=== PATIENT | female | born 2000 | race Caucasian/White ===

== ENCOUNTER 2024-02-14 13:13 | Outpatient (RCR) | payer SELFPAY ==
[2024-02-14] MEDS: RHO(D) IMMUNE GLOBULIN 1,500 UNIT SYRINGE 1500 UNIT IM (13:45)
[2024-02-14 15:17] VITALS: BP 116/75; PULSE 116; TEMP 36.6; O2SAT 97
--- NOTE | 2024-02-14 15:19 | PC.NURSE ---
1325: Arrived in dept for injection. Pleasant and talkative. VS obtained; denies discomfort at this time. Questions answered regarding purpose of rhogam. Injection given; tolerated well. 1405: Discharged ambulatory to private vehicle with SO in attendance. Med information card given to pt.
== END 2024-02-22 23:59 | disposition home or self-care (01) ==
LOC: INF 13:13
PROVIDERS: Visit Provider Midwife
DX: O26.893 Other specified pregnancy related conditions, third trimester (principal); Z67.91 Unspecified blood type, Rh negative; Z3A.00 Weeks of gestation of pregnancy not specified
CPT/HCPCS: 96372; J2791

== ENCOUNTER 2024-03-17 18:45 | Inpatient (IN) | payer SELFPAY ==
[2024-03-17] VITALS (11 sets, daily range): BP systolic 122–137; BP diastolic 73–87; PULSE 85–102; TEMP 36.7–36.9
--- OUTSIDE RECORDS SUMMARY | 2024-03-17 18:54 | XMS_ITS | CCD ---
Author Organization [facility] Care Team Providers Care Air Bag Curer Name Role Phone Alesia Stover Unavailable Unavailable Madisyn Meier Unavailable Unavailable Neal Jerry Unavailable Unavailable Selena Henry Unavailable Unavailable Madisyn Meier Unavailable Unavailable No, Physician Unavailable Unavailable Alesia Stover Unavailable Unavailable No, Physician Primary Care Provider Unavailabl e NO, PHYSICIAN Primary Care Unavailable MADELEINE FREY Attending Unavailable NO, PHYSICIAN Primary Care Unavailable RENA RAYO Attending Yovanny connell NO, PHYSICIAN Primary Care Unavailable LUAN DILLON Attending Unavailable Kamila Nagel Primary Care Provider Unavailable Primary Care Provider Unavailabl e No Family, Physician Primary Care Unavailable Jolanta GRIFFITH, Tia Unavailable [phone] MANJINDERSOFIA DOWD S Consulting Unavailable TAL MAC Attending Unavailable TAL MAC Admitting Unavailable Shaylee Baez Primary Care Provider Provider, Conversion Unavailable [phone] Kamila Nagel CNP Primary Care Provider CAROL HINDS Attending Unavailable NO, PHYSICIAN Primary Care Unavailable OBI DEVINE Attending Unavailable OBI DEVINE Referring Unavailable OBI DEVINE Attending Unavailable OBI DEVINE Attending Unavailable OBI DEVINE Attending Unavailable OBI DEVINE Attending Unavailable Allergies Allergy Classification Reported Allergen(s) Allergy Type Date of Onset Reaction(s) Facility (3 sources) NO KNOWN DRUG ALLERGIES Allergy to substance (disorder) [facility] Work Phone: (19 sources) -No Environmental Allergies; Translations: [-No Environmental Allergies] Allergy to substance (disorder) [facility] Work Phone: (3 sources) -No Known Food Allergies Allergy to substance (disorder) [facility] Work Phone: Medications Current Medications Medication Drug Class(es) Dates Sig (Normalized) Sig (Original) ibuprofen 600 mg oral tablet (1 source) Nonsteroidal Anti-inflammatory Drug Start: 06-04-2018 take 1 tablet by mouth every eight hours as needed for pain ibuprofen (ADVIL;MOTRIN) 600 MG tablet Take 1 tablet by mouth every 8 hours as needed for Pain 30 tablet 0 06/04/2018 Active mupirocin 0.02 mg/mg topical ointment (20 sources) RNA Synthetase Inhibitor Antibacterial Start: 08-07-2019 End: 08-14-2019 mupirocin (BACTROBAN) 2 % ointment Apply topically 3 times daily. 15 g 0 08/07/2019 08/14/2019 Active Start: 06-08-2017 End: 05-23-2020 Mupirocin 2% EX OINT 017 - 05/23/2020 Provider: Start: 06-08-2017 End: 04-29-2018 mupirocin 2 % topical ointme nt 06/08/2017 04/29/2018 apply a small amount to right ear by topical route 3 times per day oseltamivir 75 mg oral capsule (2 sources) Neuraminidase Inhibitor Start: 09-05-2018 End: 09-05-2018 take 1 capsule by mouth twice daily oseltamivir (TAMIFLU) 75 MG capsule Take 1 (one) capsule (75 mg total) by mouth 2 (two) times a day . 10 capsule 0 09/05/2018 Active pantoprazole 20 mg delayed release oral tablet (1 source) Proton Pump Inhibitor Start: 03-22-2017 take 2 tablets by mouth once daily pantoprazole (PROTONIX) 20 MG tablet Take 2 tablets by mouth daily for 30 doses 30 tablet 0 03/22/2017 Active Completed/Discontinued Medications Medication Drug Class(es) Dates Sig (Normalized) Sig (Original) acetaminophen 325 mg oral tablet (1 source) Start: 09-05-2018 End: 09-05-2018 acetaminophen (TYLENOL) tablet 975 mg cetirizine (18 sources) Histamine-1 Receptor Antagonist Start: 04-29-2018 End: 05-23-2020 CETIRIZINE 10 MG MISC 04/29/2018 - 05/23/2020 Provider: Start: 04-29-2018 End: 04-29-2018 CETIRIZINE 10 MG MISC 2017 - 04/29/2018 Provider: Start: 04-29-2018 End: 04-29-2018 CETIRIZINE 10MG MIS 018 - 04/29/2018 Provider: Start: 04-29-2018 End: 05-13-2018 take 1 tablet by mouth once daily cetirizine 10 mg oral tablet 04/29/2018 05/13/2018 take 1 tablet (10 mg) by oral route once daily for 14 days cholecalciferol 2000 unt oral tablet (10 sources) Vitamin D Start: 06-12-2017 End: 04-29-2018 take 1 tablet by mouth once daily cholecalciferol (vitamin D3) 2,000 unit oral tablet 06/12/2017 04/29/2018 take 1 tablet by oral route daily Start: 06-12-2017 End: 06-12-2017 CHOLECALCIFEROL (VITAMIN D3) 2,000UNIT MISC 06/12/2017 - 06/12/2017 Provider: CHOLECALCIFEROL (VITAMIN D3) 2,000 UNIT MISC (8 sources) Start: 06-12-2017 End: 06-12-2017 CHOLECALCIFEROL (VITAMIN D3) 2,000 UNIT MISC 06/12/2017 - 06/12/2017 Provider: CHOLECALCIFEROL (VITAMIN D3) 2,000 UNIT MISC (1 source) Start: 06-12-2017 End: 05-23-2020 CHOLECALCIFEROL (VITAMIN D3) 2,000 UNIT MISC 06/12/2017 - 05/23/2020 Provider: clobetasol (20 sources) Corticosteroid Start: 07-12-2017 End: 05-23-2020 [facility] 0.[facility]% [facility] - 05/23/2020 Provider: Start: 07-12-2017 End: 07-12-2017 CLOBETASOL 0.05% [facility] [place] 2017 - 07/12/2017 Provider: Start: 07-12-2017 End: 08-23-2017 clobetasol 0.05 % topical oi ntment 07/12/2017 08/23/2017 apply a thin layer to the affected area(s) by topical route 2 times per day for 21 days as needed DEPO-PROVERA 150 MG/ML MISC (8 sources) Start: 05-03-2016 End: 05-03-2016 DEPO-PROVERA 150 MG/ML MISC 05/03/2016 - 05/03/2016 Provider: DEPO-PROVERA 150 MG/ML MISC (1 source) Start: 05-03-2016 End: 05-23-2020 DEPO-PROVERA 150 MG/ML MISC 05/03/2016 - 05/23/2020 Provider: dexamethasone phosphate 10 mg/ml injectable solution (1 source) Corticosteroid Start: 09-03-2018 End: 09-03-2018 dexamethasone (DECADRON) injection 10 mg {21 (ethinyl estradiol 0.035 MG / norgestimate 0.25 MG Oral Tablet) / 7 (inert ingredients 1 MG Oral Tablet) } Pack [Sprintec 28 Day] (12 sources) Progestin, Estrogen Start: 08-22-2018 End: 11-14-2018 Sprintec 28 0.25-35MG-MCG Oral Tablet 08/22/2018 - 11/14/2018 Provider: Alesia Stover CNP iopamidol (ISOVUE-370) 76 % injection 75 mL (1 source) Start: 09-03-2018 End: 09-03-2018 iopamidol (ISOVUE-370) 76 % injection 75 mL 1 ml ketorolac tromethamine 30 mg/ml injection (16 sources) Nonsteroidal Anti-inflammatory Drug, Cyclooxygenase Inhibitor Start: 09-05-2018 End: 09-05-2018 ketorolac (TORADOL) injection 30 mg Start: 09-03-2018 End: 09-03-2018 ketorolac (TORADOL) injectio n 30 mg Start: 07-30-2018 Ketorolac Trom ethamine 60 MG/2ML IM SOLN 07/30/2018 Alesia Stover CNP Comment on above: Patient tolerated th erapy well. No signs or symptoms of adverse reactions.Only gave 30MG/1ML medroxyPROGESTERone (10 sources) Progestin Start: 05-03-2016 End: 05-03-2016 DEPO-PROVERA 150MG/ML MISC 05/03/2016 - 05/03/2016 Provider: Start: 05-03-2016 End: 06-08-2017 take 1 mL by intramuscular injection every three months Depo-Provera 150 mg/mL intramuscular syringe 05/03/2016 06/08/2017 inject 1 milliliter (150 mg) by intramuscular route every 3 months. Given in office weight gain 2 ml ondansetron 2 mg/ml injection (1 source) Serotonin-3 Receptor Antagonist Start: 09-03-2018 End: 09-03-2018 ondansetron (ZOFRAN) injection 4 mg petrolatum (20 sources) Start: 07-12-2017 End: 09-10-2017 Aquaphor topical ointment 07/12/2017 09/10/2017 apply to affected area by external route 2 times a day for 30 days Start: 07-12-2017 End: 05-23-2020 [facility] [place] 07/12/2017 - 1 07/23/2019 Provider: Start: 07-12-2017 End: 07-12-2017 [facility] [place] 07/12/2017 - 0 07/12/2017 Provider: Start: 07-12-2017 End: 09-10-2017 Aquaphor topical ointment 09/10/2017 apply to affected area by external route 2 times a day for 30 days 2 ml prochlorperazine 5 mg/ml injection (1 source) Phenothiazine Start: 09-05-2018 End: 09-05-2018 prochlorperazine (COMPAZINE) injection 10 mg promethazine hydrochloride 25 mg oral tablet (20 sources) Phenothiazine Start: 08-20-2018 End: 09-19-2018 Promethazine HCl 25MG Oral Tablet 08/20/2018 - 09/19/2018 Provider: Alesia Stover CNP Start: 07-22-2018 End: 07-24-2018 take 1 tablet by mouth every twenty-four hours Promethazine HCl 25MG Oral Tablet 07/22/2018 - 07/24/2018 Provider: Alesia Stover CROSSING TENDER 1000 ml sodium chloride 9 mg /ml injection (3 sources) Start: 09-05-2018 End: 09-05-2018 sodium chloride 0.9% (NS) nii torin 1,000 mL Start: 09-03-2018 End: 09-03-2018 sodium chloride 0.9% (NS) nii torin 1,000 mL Start: 09-03-2018 End: 09-04-2018 sodium chloride (PF) (NS) fl ush 5 mL Sprintec (28) (4 sources) Start: 06-08-2017 End: 04-29-2018 take 1 tablet by mouth once daily Sprintec (28) 0.25-35 mg-mcg oral tablet 06/08/2017 04/29/2018 take 1 tablet by oral route once daily; start on Saturday Start: 06-08-2017 take 1 tablet by erika th once daily Sprintec (28) 0.25-35 mg-mcg oral tablet 06/08/2017 take 1 tablet by oral route once daily; start on Saturday SPRINTEC (28) 0.25-35 mg-mcg MISC (16 sources) Start: 06-08-2017 End: 06-08-2017 SPRINTEC (28) 0.25-35 mg-mcg MISC 06/08/2017 - 06/08/2017 Provider: SPRINTEC (28) 0.25-35 mg-mcg MISC (14 sources) Start: 06-08-2017 End: 05-23-2020 SPRINTEC (28) 0.25-35 mg-mcg MISC 06/08/2017 - 05/23/2020 Provider: Start: 06-08-2017 End: 06-08-2017 SPRINTEC (28) 0.25-35 mg-mcg MISC 06/08/2017 - 06/08/2017 Provider: terbinafine hydrochloride 10 mg/ml topical cream (19 sources) Allylamine Antifungal Start: 02-17-2018 End: 05-23-2020 Terbinafine HCl 1% EX CREA 02/17/2018 - 05/23/2020 Provider: Start: 02-17-2018 End: 03-17-2018 terbinafine HCl 1 % topical cream 02/17/2018 03/17/2018 apply to the affected and surrounding areas of skin by topical route 2 times per day for 14 days triamcinolone acetonide 1 mg/ml topical cream (19 sources) Corticosteroid Start: 06-08-2017 End: 05-23-2020 Triamcinolone Acetonide 0.1% EX CREA 06/08/2017 - 05/23/2020 Provider: Start: 06-08-2017 End: 04-29-2018 triamcinolone acetonide 0.1 % topical cream 06/08/2017 04/29/2018 apply to the rash on hands by topical route BID Problems Active Problems Problem Classification Problem Date Documented Da te Episodic/Chronic Adjustment disorders (20 sources) Adjustment disorder with depressed mood; Translations: [Adjustment disorder with depressed mood] Onset: 10-19-2016 Chronic Disorders of lipid metabolism (18 sources) Pure hyperglyceridemia; Translations: [Hypertriglyceridem ia] Onset: 06-12-2017 Chronic Headache; including migraine (7 sources) Migraine without aura; Translations: [Migraine without aura, without mention of intractable migraine without mention of status migrainosus] Onset: 07-30-2018 Chronic Immunizations and screening for infectious disease (20 sources) Need for prophylactic vaccination and inoculation against varicella; Translations: [Need for prophylactic vaccination and inoculation against influenza] Onset: 05-03-2016 Episodic Influenza (6 sources) Influenza; Translations: [Influenza due to Influenza A virus] Onset: 09-03-2018 Episodic Menstrual disorders (16 sources) Dysmenorrhea; Translations: [Menorrhagia] Onset: 08-22-2018 Chronic Miscellaneous mental health disorders (4 sources) Normal grief reaction; Translations: [Bereavement Without Complications] Onset: 08-21-2019 Episodic Nutritional deficiencies (18 sources) Vitamin D deficiency; Translations: [Unspecified vitamin D deficiency] Onset: 06-12-2017 Chronic Other lower respiratory disease (6 sources) Cough; Translations: [Assessment of Cough] Onset: 08-21-2019 Episodic Other nutritional; endocrine; and metabolic disorders (20 sources) Overweight; Translations: [Lipoprotein deficiencies] Onset: 06-12-2017 Chronic Other nutritional; endocrine; and metabolic disorders (18 sources) Obesity, unspecified; Translations: [Obesity, unspecified] Onset: 06-12-2017 Chronic Other nutritional; endocrine; and metabolic disorders (6 sources) Lipoprotein deficiencies Onset: 06-12-2017 Chronic Other nutritional; endocrine; and metabolic disorders (3 sources) Cholesterol level - finding; Translations: [Low HDL (under 40)] Onset: 06-12-2017 Chronic Other nutritional; endocrine; and metabolic disorders (3 sources) Obesity, unspecified; Translations: [Childhood obesity] Onset: 06-12-2017 Chronic Other nutritional; endocrine; and metabolic disorders (13 sources) Lipoprotein deficiency; Translations: [Lipoprotein deficiency] Onset: 06-12-2017 Chronic Other nutritional; endocrine; and metabolic disorders (9 sources) Body mass index (BMI) pediatric, 85th percentile to less than 95th percentile for age; Translations: [Assessment of Bmi Percentile = 85% To < 95% For Age Z68.53] Onset: 08-21-2019 Episodic Other skin disorders (1 source) Folliculitis Episodic Other upper respiratory infections (12 sources) Acute upper respiratory infections of unspecified site; Translations: [Acute pharyngitis] Onset: 04-29-2018 Episodic Past or Other Problems Problem Classification Problem Date Documented Date Episodic/Chronic Allergic reactions (18 sources) Hand eczema; Translations: [Contact dermatitis and other eczema, unspecified cause] Onset: 06-08-2017 Episodic Contraceptive and procreative management (20 sources) General counseling on prescription of oral contraceptives; Translations: [General counseling on initiation of other contraceptive measures] Onset: 05-03-2016 Episodic Disorders of teeth and jaw (4 sources) Accretions on teeth Onset: 05-07-2016 Episodic Medical examination/evaluatio n (7 sources) Dental examination; Translations: [Routine or child health check] Onset: 05-03-2016 Episodic Mycoses (4 sources) Dermatophytosis of the body Onset: 02-17-2018 Episodic Nausea and vomiting (8 sources) Persistent vomiting; Translations: [Persistent vomiting] Onset: 07-22-2018 Episodic Noninfectious gastroenteritis (6 sources) Gastroenteritis; Translations: [Other and unspecified noninfectious gastroenteritis and colitis] Onset: 08-20-2018 Episodic Other inflammatory condition of skin (4 sources) Unspecified pruritic disorder Onset: 07-16-2016 Episodic Other nutritional; endocrine; and metabolic disorders (3 sources) Body Mass Index, pediatric, greater than or equal to 95th percentile for age Onset: 06-08-2017 Episodic Other nutritional; endocrine; and metabolic disorders (3 sources) Body Mass Index 29.0-29.9, adult Onset: 06-08-2017 Episodic Other nutritional; endocrine; and metabolic disorders (3 sources) Body Mass Index, pediatric, 85th percentile to less than 95th percentile for age Onset: 10-19-2016 Episodic Other nutritional; endocrine; and metabolic disorders (7 sources) Finding of body mass index; Translations: [Body mass index (BMI) pediatric, 85th percentile to less than 95th percentile for age] Onset: 08-20-2018 Episodic Other skin disorders (5 sources) Dyshidrosis; Translations: [Unspecified hypertrophic and atrophic conditions of skin] Onset: 07-16-2016 Episodic Other skin disorders (3 sources) Unspecified hypertrophic and atrophic conditions of skin Onset: 07-16-2016 Episodic Skin and subcutaneous tissue infections (20 sources) Unspecified local infection of skin and subcutaneous tissue; Translations: [Pustule ] Onset: 06-08-2017 Episodic Sprains and strains (2 sources) Sprain of unspecified ligament of right ankle, initial encounter; Translations: [Sprain of unspecified ligament of right ankle, initial encounter] Onset: 06-02-2018 Episodic Superficial injury; contusion (3 sources) Contusion of nose; Translations: [Contusion of nose, initial encounter] Onset: 06-02-2018 Episodic Unclassified (4 sources) Screening for diabetes mellitus Onset: 06-08-2017 Episodic Unclassified (7 sources) Vaccination not carried out because of patient refusal; Translations: [Body Mass Index, pediatric, greater than or equal to 95th percentile for age] Onset: 10-19-2016 Episodic Unclassified (1 source) [id number] llness_name_1 Unclassified (1 source) [id number] llness_name_1 Unclassified (1 source) [id number] llness_name_1 Unclassified (1 source) Sprain of right ankle, unspecified ligament, initial encounter Unclassified (1 source) [id number] llness_name_1 Unclassified (20 sources) Questionnaires Phq-9 Total Score; Translations: [Questionnaires Phq-9 Total Score] Onset: 09-02-2018 Unclassified (20 sources) Raaps Score; Translations: [Raaps Score] Onset: 09-02-2018 Unclassified (14 sources) Adolescent care; Translations: [Routine History and Physical Adolescent (12 - 17 Yrs)] Onset: 09-02-2018 Unclassified (7 sources) Finding of body mass index; Translations: [Body Mass Index ___ Percentile] Onset: 08-20-2018 Results Test Name Value Interpretation Reference Range Facility US OB 14+ WEEKS ANATOMY SCAN on 01-28-2024 US OB 14+ WEEKS ANATOMY SCAN TITLE OF EXAM: US - US OB GREATER THAN 14 WEEKS REASON FOR EXAM: Anatomy scan TECHNIQUE: Grayscale, color, and M-mode Doppler sonographic evaluation of the fetus and maternal pelvis. COMPARISON: None. FINDINGS: LMP: 06/12/2023 Age by LMP: 32 weeks, 6 days Estimated date of delivery by LMP: 03/18/2024 Single live intrauterine gestation in cephalic position sonographically measuring 33 weeks, 1 day. Sonographically normal visualized structures including the lateral ventricles, orbits, heart, stomach, kidneys, urinary bladder, skeleton, and diaphragm. Movement was visualized during the survey. Three-vessel cord; the insertion was not definitively visualized. Heart rate: 151 bpm Biparietal diameter: 8.35 cm, 33 weeks, 4 days (66%) Abdominal circumference: 28.8 cm, 32 weeks, 6 days (49%) Head circumference: 29.7, 32 weeks, 6 days (14.5%) Femur length: 6.5, 33 weeks, 3 days (53%) weight: 2108 g (4 pounds, 10 ounces) (47%) Anteriorly positioned placenta without appreciable previa on the provided images. Placental grade 2. Approximate cervical length 4.5 cm. Amniotic fluid index 14.3 cm (50%). IMPRESSION: 1. Single live intrauterine gestation sonographically measuring 33 weeks, 1 day. 2. No appreciable anatomic abnormality of the or maternal structures. Findings as detailed. DICTATED ON: 01/28/2024 4:28 PM This report has been electronically signed and approved by the interpreting radiologist. Electronically Signed Diogenes Palma M.D. 2024-01-28 16:32:59 Normal Not Available COVID-19, MOLECULARon 2021 SARS-CoV-2 (COVID-19) RNA ELLIE+probe Ql (Unsp spec) Not detected Normal Not Detected [facility] Comment on above: Order Comment: This test was performed under the FDA's Emergency Use Authorization (EUA). Testing was performed using the Sel[facility] [employer] Manuel SARS-CoV-2 RT-PCR AND Influenza A/B Nucleic Acid Test on the [employer] System. This test has not been approved for use in asymptomatic patients and its performance in this patient population has not been evaluated. Negative results do not rule out the presence of SARS-CoV-2, influenza A, and/or influenza B. Fact sheets for the EUA can be found at the following links: For Healthcare Providers: https://www.fda.gov/media/810214/download For Patients: https://www.fda.gov/media/530836/download Performed By: #### L [id number] #### [facility] [address] [address] Melanie Cota M.D. [id number] TSH w/reflex to FT4on 2021 TSH Qn 1.61 m[IU]/L Normal 0.30-5.00 [facility] Comment on above: Performed By: #### T SHX #### [facility] [address] [facility] [place] [address] Motor Electrician: Nj Romero DO Acetaminophenon 07-12-2021 Acetaminophen [Mass/Vol] 6 ug/mL Low 10-30 [facility] Comment on above: Performed By: #### A CET, CDP, ALCB, CP, HCG, SALI #### [facility] [address] [facility] [place] [address] Motor Electrician: Nj Romero DO CBC with Diffon 07-12-2021 Abs. Basophil 0.00 k/uL Normal 0.0-0.2 [facility] Comment on above: Performed By: #### A CET, CDP, ALCB, CP, HCG, SALI #### [facility] [address] [facility] [place] [address] Motor Electrician: Nj Romero DO Abs.Neutrophil (Seg) 3.20 k/uL Normal 1.3-9.1 [facility] Comment on above: Performed By: #### A CET, CDP, ALCB, CP, HCG, SALI #### [facility] [address] [place] [address] Motor Electrician: Nj Romero DO Basophils/100 WBC (Bld) 1 % Normal 0-2 M [facility] Comment on above: Performed By: #### A CET, CDP, ALCB, CP, HCG, SALI #### [facility] [address] [place] [address] Motor Electrician: Nj Romero DO Eosinophils (Bld) [#/Vol] 0.00 10*3/uL Normal 0.0-0.4 [facility] Comment on above: Performed By: #### A CET, CDP, ALCB, CP, HCG, SALI #### [facility] [address] [place] [address] Motor Electrician: Nj Romero DO Eosinophils/100 WBC (Bld) 1 % Normal 0-4 [facility] Comment on above: Performed By: #### A CET, CDP, ALCB, CP, HCG, SALI #### [facility] [facility] [place] [address] Motor Electrician: Nj Romero DO Erythrocyte distribution width (RBC) [Ratio] 15.1 % High 11.5-14.9 [facility] Comment on above: Performed By: #### A CET, CDP, ALCB, CP, HCG, SALI #### [facility] [place] [address] Motor Electrician: Nj Romero DO Hematocrit (Bld) [Volume fraction] 42.4 % Normal 36-46 [facility] Comment on above: Performed By: #### A CET, CDP, ALCB, CP, HCG, SALI #### [facility] [address] [place] [address] Motor Electrician: Nj Romero DO Hemoglobin (Bld) [Mass/Vol] 13.8 g/dL Normal 12.0-16.0 [facility] Comment on above: Performed By: #### A CET, CDP, ALCB, CP, HCG, SALI #### [facility] [address] [place] [address] Motor Electrician: Nj Romero DO Lymphocytes (Bld) [#/Vol] 1.80 10*3/uL Normal 1.2-5.2 [facility] Comment on above: Performed By: #### A CET, CDP, ALCB, CP, HCG, SALI #### [facility] [address] [place] [address] Motor Electrician: Nj Romero DO Lymphocytes/100 WBC (Bld) 32 % Normal 25-45 [facility] Comment on above: Performed By: #### A CET, CDP, ALCB, CP, HCG, SALI #### [facility] [address] [place] [address] Motor Electrician: Nj Romero DO MCH (RBC) [Entitic mass] 27.9 pg Normal 26-34 [facility] Comment on above: Performed By: #### A CET, CDP, ALCB, CP, HCG, SALI #### [facility] [address] [place] [address] Motor Electrician: Nj Romero DO MCHC (RBC) [Mass/Vol] 32.5 g/dL Normal 31-37 [facility] Comment on above: Performed By: #### A CET, CDP, ALCB, CP, HCG, SALI #### [facility] [address] [place] [address] Motor Electrician: Nj Romero DO MCV (RBC) [Entitic vol] 85.8 fL Normal 80-100 M [facility] Comment on above: Performed By: #### A CET, CDP, ALCB, CP, HCG, SALI #### [facility] [address] [place] [address] Motor Electrician: Nj Romero DO Monocytes (Bld) [#/Vol] 0.60 10*3/uL Normal 0.1-1.3 [facility] Comment on above: Performed By: #### A CET, CDP, ALCB, CP, HCG, SALI #### [facility] [address] [place] [address] Motor Electrician: Nj Romero DO Monocytes/100 WBC (Bld) 10 % High 2-8 M [facility] Comment on above: Performed By: #### A CET, CDP, ALCB, CP, HCG, SALI #### [facility] [address] [place] [address] Motor Electrician: Nj Romero DO Neutrophil (Seg) 56 % Normal 34-64 [facility] Comment on above: Performed By: #### A CET, CDP, ALCB, CP, HCG, SALI #### [facility] [address] [place] [address] Motor Electrician: Nj Romero DO Platelet mean volume (Bld) [Entitic vol] 9.0 fL Normal 6.0-12.0 [facility] Comment on above: Performed By: #### A CET, CDP, ALCB, CP, HCG, SALI #### [facility] [address] [place] [address] Motor Electrician: Nj Romero DO Platelets (Bld) [#/Vol] 259 10*3/uL Normal 150-450 [facility] Comment on above: Performed By: #### A CET, CDP, ALCB, CP, HCG, SALI #### [facility] [address] [place] [address] Motor Electrician: Nj Romero DO RBC (Bld) [#/Vol] 4.94 10*6/uL Normal 4.0-5.2 [facility] Comment on above: Performed By: #### A CET, CDP, ALCB, CP, HCG, SALI #### [facility] [address] [place] [address] Motor Electrician: Nj Romero DO WBC (Bld) [#/Vol] 5.6 10*3/uL Normal 4.5-13.5 [facility] Comment on above: Performed By: #### A CET, CDP, ALCB, CP, HCG, SALI #### [facility] [place] [address] Motor Electrician: Nj Romero DO Abs.Imm.Granulocyte NOT REPORTED Normal 0.00-0.30 [facility] Comment on above: Performed By: #### A CET, CDP, ALCB, CP, HCG, SALI #### [facility] [place] [address] Motor Electrician: Nj Romero DO Auto Diff Performed NOT REPORTED Normal [facility] Comment on above: Performed By: #### A CET, CDP, ALCB, CP, HCG, SALI #### [facility] [place] [address] Motor Electrician: Nj Romero DO Immature Granulocyte NOT REPORTED Normal 0 [facility] Comment on above: Performed By: #### A CET, CDP, ALCB, CP, HCG, SALI #### [facility] [place] [address] Motor Electrician: Nj Romero DO NRBC Automated NOT REPORTED Normal [facility] Comment on above: Performed By: #### A CET, CDP, ALCB, CP, HCG, SALI #### [facility] [address] [facility] [place] [address] Motor Electrician: Nj Romero DO Platelet Comment NOT REPORTED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 volume (RBC) 82.8 fL Invalid Interpretation Code 80.-100. [facility] Monocytes/100 WBC Auto (Bld) 5.5 % Invalid Interpretation Code [facility] Neutrophils/100 WBC Auto (Bld) 51.0 % Invalid Interpretation Code [facility] Nucleated RBC/100 WBC Ratio (Bld) 0.4 10*3/uL Invalid Interpretation Code 0.1-0.4 [facility] Nucleated RBC/100 WBC Ratio (Bld) 3.3 10*3/uL Invalid Interpretation Code 0.8-5.2 [facility] Nucleated RBC/100 WBC Ratio (Bld) 0.5 10*3/uL Invalid Interpretation Code 0.1-0.9 [facility] Nucleated RBC/100 WBC Ratio (Bld) 4.4 10*3/uL Invalid Interpretation Code 1.3-9.1 [facility] RBC Auto #/vol (Bld) 5.230 10*6/uL Invalid Interpretation Code 4.00-5.50 [facility] Metabolic Panelon 06-10-2017 Albumin mass conc 4.40 g/dL Invalid Interpretation Code 3.2-5.3 [facility] ALP enzyme act/vol 131.0 U/L Invalid Interpretation Code 60-320 [facility] ALT enzyme act/vol 18.0 U/L Invalid Interpretation Code 5-59 [facility] Anion gap 3 molar conc 16 mmol/L Invalid Interpretation Code [facility] AST enzyme act/vol 21.0 U/L Invalid Interpretation Code 10-42 [facility] Calcium mass conc 9.70 mg/dL Invalid Interpretation Code 9.0-11.5 [facility] Chloride molar conc 103 mmol/L Invalid Interpretation Code 95-111 [facility] CO2 molar conc 28 mmol/L Invalid Interpretation Code 21-32 [facility] Creatinine mass conc 0.50 mg/dL Invalid Interpretation Code 0.5-1.3 [facility] Glucose mass conc 85 mg/dL Invalid Interpretation Code 70-100 [facility] Potassium molar conc 4.40 mmol/L Invalid Interpretation Code 3.5-5.4 [facility] Protein mass conc 6.7 g/dL Invalid Interpretation Code 6.2-8.8 [facility] Sodium molar conc 143 mmol/L Invalid Interpretation Code 134-147 [facility] Urea nitrogen mass conc 5.0 mg/dL Invalid Interpretation Code 10-20 [facility] Albumin mass conc 4.40 g/dL Invalid Interpretation Code 3.2-5.3 [facility] ALP enzyme act/vol 131.0 U/L Invalid Interpretation Code 60-320 [facility] ALT enzyme act/vol 18.0 U/L Invalid Interpretation Code 5-59 [facility] Anion gap 3 molar conc 16 mmol/L Invalid Interpretation Code [facility] AST enzyme act/vol 21.0 U/L Invalid Interpretation Code 10-42 [facility] Calcium mass conc 9.70 mg/dL Invalid Interpretation Code 9.0-11.5 [facility] Chloride molar conc 103 mmol/L Invalid Interpretation Code 95-111 [facility] CO2 molar conc 28 mmol/L Invalid Interpretation Code 21-32 [facility] Creatinine mass conc 0.50 mg/dL Invalid Interpretation Code 0.5-1.3 [facility] Glucose mass conc 85 mg/dL Invalid Interpretation Code 70-100 [facility] Potassium molar conc 4.40 mmol/L Invalid Interpretation Code 3.5-5.4 [facility] Protein mass conc 6.7 g/dL Invalid Interpretation Code 6.2-8.8 [facility] Sodium molar conc 143 mmol/L Invalid Interpretation Code 134-147 [facility] Urea nitrogen mass conc 5.0 mg/dL Invalid Interpretation Code 10-20 [facility] Otheron 06-10-2017 Bilirubin Ql (U) 0.2 Invalid Interpretation Code 0.2-1.3 [facility] Calcidiol mass conc 14.0 ng/mL Invalid Interpretation Code SEE BELOW [facility] Cholesterol crystals Infrared spectroscopy Ql (Stone) 203 mg/dL Invalid Interpretation Code <200 [facility] Cholesterol.total/Leatha sterol in HDL mass ratio 5.3 {ratio} Invalid Interpretation Code <5 [facility] Lipoprotein.beta/Lipopr otein.alpha mass ratio 2.6 Invalid Interpretation Code <3.5 [facility] Lipoprotein.pre-beta mass conc 66.0 mg/dL Invalid Interpretation Code <30 [facility] Lipoprotein.pre-beta mass conc 99.0 mg/dL Invalid Interpretation Code <110 [facility] WBC LM Ql (Sput) 8.6 Invalid Interpretation Code 3.7-10.8 [facility] 167 Invalid Interpretation Code >60 [facility] 202 Invalid Interpretation Code >60 [facility] 282 Invalid Interpretation Code 150.-450. [facility] Bilirubin Ql (U) 0.2 Invalid Interpretation Code 0.2-1.3 [facility] Calcidiol mass conc 14.0 ng/mL Invalid Interpretation Code SEE BELOW [facility] Cholesterol crystals Infrared spectroscopy Ql (Stone) 203 mg/dL Invalid Interpretation Code <200 [facility] Cholesterol.total/Leatha sterol in HDL mass ratio 5.3 {ratio} Invalid Interpretation Code <5 [facility] Lipoprotein.beta/Lipopr otein.alpha mass ratio 2.6 Invalid Interpretation Code <3.5 [facility] Lipoprotein.pre-beta mass conc 99.0 mg/dL Invalid Interpretation Code <110 [facility] Lipoprotein.pre-beta mass conc 66.0 mg/dL Invalid Interpretation Code <30 [facility] WBC LM Ql (Sput) 8.6 Invalid Interpretation Code 3.7-10.8 [facility] 202 Invalid Interpretation Code >60 [facility] 167 Invalid Interpretation Code >60 [facility] 282 Invalid Interpretation Code 150.-450. [facility] Thyroidon 06-10-2017 Thyrotropin Qn 2.580 uIU/mL Invalid Interpretation Code 0.36-5.80 [facility] Thyrotropin Qn 2.580 uIU/mL Invalid Interpretation Code 0.36-5.80 [facility] Metabolic Panelon 06-08-2017 Hemoglobin A1c/Hemoglobin.total mass fraction (Bld) 5.30 % Invalid Interpretation Code < 7 [facility] Hemoglobin A1c/Hemoglobin.total mass fraction (Bld) 5.30 % Invalid Interpretation Code < 7 [facility] Otheron 06-08-2017 2 Invalid Interpretation Code [facility] 2 Invalid Interpretation Code [facility] Urinalysison 06-08-2017 HCG.beta subunit ( test) Ql (U) Negative Invalid Interpretation Code [facility] HCG.beta subunit ( test) Ql (U) Negative Invalid Interpretation Code [facility] Otheron 10-19-2016 Negative Invalid Interpretation Code NEGATIVE [facility] URINE Invalid Interpretation Code [facility] Negative Invalid Interpretation Code NEGATIVE [facility] URINE Invalid Interpretation Code [facility] Urinalysis specialist review Interp Jose Rafael (Unsp spec) WNL Invalid Interpretation Code [facility] Negative Invalid Interpretation Code [facility] Urinalysis specialist review Interp Jose Rafael (Unsp spec) WNL Invalid Interpretation Code [facility] Negative Invalid Interpretation Code [facility] Urinalysison 10-19-2016 HCG.beta subunit ( test) Ql (U) Negative Invalid Interpretation Code [facility] HCG.beta subunit ( test) Ql (U) Negative Invalid Interpretation Code [facility] Otheron 07-16-2016 Urinalysis specialist review Interp Jose Rafael (Unsp spec) normal Invalid Interpretation Code [facility] Urinalysis specialist review Interp Jose Rafael (Unsp spec) normal Invalid Interpretation Code [facility] Urinalysison 07-16-2016 HCG.beta subunit ( test) Ql (U) Negative Invalid Interpretation Code [facility] HCG.beta subunit ( test) Ql (U) Negative Invalid Interpretation Code [facility] Otheron 05-03-2016 Never Invalid Interpretation Code [facility] mlm Invalid Interpretation Code [facility] Never Invalid Interpretation Code [facility] mlm Invalid Interpretation Code [facility] Vital Signs Date Time Vital Sign Value Performing Clinician Facility 08-25-2019 13:04-0500 BMI (Body Mass Index) 28.9 kg/m2 Kamila Nagel [facility] Work Phone: 08-25-2019 13:04-0500 Body mass index (BMI) [Percentile] 92 {percentile} Kamila Nagel [facility] Work Phone: 08-25-2019 13:04-0500 Body Temperature 98.3 [degF] Kamiladesiree Nagel [facility] Work Phone: 08-25-2019 13:04-0500 Body weight 72.13 kg [facility] Work Phone: 08-25-2019 13:04-0500 BP Diastolic 74 mm[Hg] [facility] Work Phone: 08-25-2019 13:04-0500 BP Systolic 124 mm[Hg] [facility] Work Phone: 08-25-2019 13:04-0500 BSA (Body Surface Area) 1.74 m2 [facility] Work Phone: 08-25-2019 13:04-0500 Flow Rate 0 L/min [facility] Work Phone: 08-25-2019 13:04-0500 Height 157.99 cm [facility] Work Phone: 08-25-2019 13:04-0500 Inhaled Oxygen Concentration 21 % [facility] Work Phone: 08-25-2019 13:04-0500 Pulse (Heart Rate) 86 /min [facility] Work Phone: 08-25-2019 13:04-0500 Pulse Oximetry 98 % [facility] Work Phone: 08-25-2019 13:04-0500 Respiratory Rate 20 /min [facility] Work Phone: 08-21-2019 10:26-0500 BMI (Body Mass Index) 27 kg/m2 [facility] Work Phone: 08-21-2019 10:26-0500 Body mass index (BMI) [Percentile] 89 {percentile} [facility] Work Phone: 08-21-2019 10:26-0500 Body Temperature 97.6 [degF] [facility] Work Phone: 08-21-2019 10:26-0500 Body weight 70.31 kg [facility] Work Phone: 08-21-2019 10:26-0500 BP Diastolic 75 mm[Hg] [facility] Work Phone: 08-21-2019 10:26-0500 BP Systolic 100 mm[Hg] [facility] Work Phone: 08-21-2019 10:26-0500 BSA (Body Surface Area) 1.75 m2 [facility] Work Phone: 08-21-2019 10:26-0500 Height 161.29 cm [facility] Work Phone: 08-21-2019 10:26-0500 Pulse (Heart Rate) 99 /min [facility] Work Phone: 08-21-2019 10:26-0500 Pulse Oximetry 99 % [facility] Work Phone: 08-21-2019 10:26-0500 Respiratory Rate 18 /min [facility] Work Phone: 08-07-2019 15:49-0500 Body Temperature 97.7 [degF] [facility] [employer] Work Phone: 08-07-2019 15:49-0500 Body weight 73.57 kg [facility] Work Phone: 08-07-2019 15:49-0500 BP Diastolic 57 mm[Hg] [facility] Work Phone: 08-07-2019 15:49-0500 BP Systolic 115 mm[Hg] [facility] Work Phone: 08-07-2019 15:49-0500 Pulse (Heart Rate) 87 /min [employer] Phone: 08-07-2019 15:49-0500 Pulse Oximetry 100 % [employer] Phone: 08-07-2019 15:49-0500 Respiratory Rate 16 /min [employer] Phone: 09-05-2018 15:15-0400 Body Temperature 97.5 [degF] [facility] 09-05-2018 15:15-0400 BP Diastolic 65 mm[Hg] [facility] 09-05-2018 15:15-0400 BP Systolic 94 mm[Hg] [facility] 09-05-2018 15:15-0400 Pulse (Heart Rate) 103 /min [facility] 09-05-2018 15:15-0400 Pulse Oximetry 95 % [facility] 09-05-2018 15:15-0400 Respiratory Rate 18 /min [facility] 09-05-2018 12:38-0400 BMI (Body Mass Index) 27.65 kg/m2 [facility] 09-05-2018 12:38-0400 Height 160 cm [facility] 09-05-2018 12:38-0400 Weight 70.8 kg [facility] 09-03-2018 22:51-0400 Body Temperature 98.6 [degF] [facility] 09-03-2018 22:51-0400 BP Diastolic 64 mm[Hg] [facility] 09-03-2018 22:51-0400 BP Systolic 121 mm[Hg] [facility] 09-03-2018 22:51-0400 Pulse (Heart Rate) 110 /min [facility] 09-03-2018 22:51-0400 Pulse Oximetry 98 % [facility] 09-03-2018 22:51-0400 Respiratory Rate 18 /min [facility] 09-03-2018 19:36-0400 BMI (Body Mass Index) 27.63 kg/m2 [facility] 09-03-2018 19:36-0400 Height 160 cm [facility] 09-03-2018 19:36-0400 Weight 70.[address] [facility] 09-02-2018 11:16-0400 Body height 161.29 cm Kamila Nagel CNP Work Phone: [facility] Work Phone: 09-02-2018 11:16-0400 Body mass index (BMI) [Percentile] 89 {percentile} Kamila Nagel [facility] Work Phone: 09-02-2018 11:16-0400 Body mass index (BMI) [Percentile] 89 % Kamila Whatleyy NACHO Work Phone: [facility] Work Phone: 09-02-2018 11:16-0400 Body mass index (BMI) [Ratio] 26.5 kg/m2 Kamila Whatleyy NACHO Work Phone: [facility] Work Phone: 09-02-2018 11:16-0400 Body surface area Derived from formula 1.73 m2 Kamila Whatleyy NACHO Work Phone: [facility] Work Phone: 09-02-2018 11:16-0400 Body temperature 97.4 [degF] Kamila Nagel CNP Work Phone: [facility] Work Phone: 09-02-2018 11:16-0400 Body weight 68.96 kg Kamila Whatleyy NACHO Work Phone: [facility] Work Phone: 09-02-2018 11:16-0400 Diastolic blood pressure 68 mm[Hg] Kamila Shona [employer] Work Phone: [facility] Work Phone: 09-02-2018 11:16-0400 Heart rate 88 /min Kamilawaldemar Whatleyy NACHO Work Phone: [facility] Work Phone: 09-02-2018 11:16-0400 Inhaled oxygen concentration 21 % Kamila Nagel CNP Work Phone: [facility] Work Phone: 09-02-2018 11:16-0400 Inhaled oxygen flow rate 0 L/min Kamila Nagel CNP Work Phone: [facility] Work Phone: 09-02-2018 11:16-0400 Pulse Oximetry 99 % Kamila Nagel [facility] Work Phone: 09-02-2018 11:16-0400 Respiratory rate 20 /min Kamila Nagel CNP Work Phone: [facility] Work Phone: 09-02-2018 11:16-0400 SaO2% (BldA) [Mass fraction] 99 % Kamila Nagel CNP Work Phone: [facility] Work Phone: 09-02-2018 11:16-0400 Systolic blood pressure 122 mm[Hg] Kamila Nagel CNP Work Phone: [facility] Work Phone: 08-22-2018 09:27-0500 Body height 155.45 cm Alesia Stover CNP Work Phone: [facility] Work Phone: 08-22-2018 09:27-0500 Body mass index (BMI) [Percentile] 93 {percentile} Kamila Nagel [facility] Work Phone: 08-22-2018 09:27-0500 Body mass index (BMI) [Percentile] 93 % Alesia Stover CNP Work Phone: [facility] Work Phone: 08-22-2018 09:27-0500 Body mass index (BMI) [Ratio] 28.4 kg/m2 Alesia Stover CNP Work Phone: [facility] Work Phone: 08-22-2018 09:27-0500 Body surface area Derived from formula 1.68 m2 Alesia Stover CNP Work Phone: [facility] Work Phone: 08-22-2018 09:27-0500 Body temperature 97.6 [degF] Alesia Stover CNP Work Phone: [facility] Work Phone: 08-22-2018 09:27-0500 Body weight 68.66 kg Alesia Stover CNP Work Phone: [facility] Work Phone: 08-22-2018 09:27-0500 Diastolic blood pressure 66 mm[Hg] Alesia Stover CNP Work Phone: [facility] Work Phone: 08-22-2018 09:27-0500 Heart rate 99 /min Alesia Stover CNP Work Phone: [facility] Work Phone: 08-22-2018 09:27-0500 Inhaled oxygen concentration 21 % Alesia Stover CNP Work Phone: [facility] Work Phone: 08-22-2018 09:27-0500 Inhaled oxygen flow rate 0 L/min Alesia Stover CNP Work Phone: [facility] Work Phone: 08-22-2018 09:27-0500 Pulse Oximetry 99 % Kamila Nagel [facility] Work Phone: 08-22-2018 09:27-0500 SaO2% (BldA) [Mass fraction] 99 % Alesia Stover CNP Work Phone: [facility] Work Phone: 08-22-2018 09:27-0500 Systolic blood pressure 102 mm[Hg] Alesia Stover CNP Work Phone: [facility] Work Phone: 08-20-2018 13:42-0500 Body height 158.5 cm Alesia Stover CNP Work Phone: [facility] Work Phone: 08-20-2018 13:42-0500 Body mass index (BMI) [Percentile] 91 {percentile} Kamila Nagel [facility] Work Phone: 08-20-2018 13:42-0500 Body mass index (BMI) [Percentile] 91 % Tia Jolanta GRIFFITH Work Phone: [facility] Work Phone: 08-20-2018 13:42-0500 Body mass index (BMI) [Ratio] 27.5 kg/m2 Alesia Stover CNP Work Phone: [facility] Work Phone: 08-20-2018 13:42-0500 Body surface area Derived from formula 1.71 m2 Alesia Stover CNP Work Phone: [facility] Work Phone: 08-20-2018 13:42-0500 Body temperature 97.3 [degF] Alesia Stover CNP Work Phone: [facility] Work Phone: 08-20-2018 13:42-0500 Body weight 69.06 kg Alesia Stover CNP Work Phone: [facility] Work Phone: 08-20-2018 13:42-0500 Diastolic blood pressure 72 mm[Hg] Alesia Stover CNP Work Phone: [facility] Work Phone: 08-20-2018 13:42-0500 Heart rate 89 /min Alesia Stover CNP Work Phone: [facility] Work Phone: 08-20-2018 13:42-0500 Inhaled oxygen concentration 21 % Alesia Stover CNP Work Phone: [facility] Work Phone: 08-20-2018 13:42-0500 Inhaled oxygen flow rate 0 L/min Alesia Stover CNP Work Phone: [facility] Work Phone: 08-20-2018 13:42-0500 Pulse Oximetry 100 % Kamila Nagel [facility] Work Phone: 08-20-2018 13:42-0500 SaO2% (BldA) [Mass fraction] 100 % Alesia Stover CNP Work Phone: [facility] Work Phone: 08-20-2018 13:42-0500 Systolic blood pressure 121 mm[Hg] Alesia Stover CNP Work Phone: [facility] Work Phone: 07-30-2018 14:53-0500 Body height 156.72 cm Conversion Provider Work Phone: [facility] Work Phone: 07-30-2018 14:53-0500 Body mass index (BMI) [Percentile] 93 {percentile} Kamila Nagel [facility] Work Phone: 07-30-2018 14:53-0500 Body mass index (BMI) [Percentile] 93 % Conversion Provider Work Phone: [facility] Work Phone: 07-30-2018 14:53-0500 Body mass index (BMI) [Ratio] 28.5 kg/m2 Conversion Provider Work Phone: [facility] Work Phone: 07-30-2018 14:53-0500 Body surface area Derived from formula 1.71 m2 Conversion Provider Work Phone: [facility] Work Phone: 07-30-2018 14:53-0500 Body temperature 98 [degF] Conversion Provider Work Phone: [facility] Work Phone: 07-30-2018 14:53-0500 Body weight 70.08 kg Conversion Provider Work Phone: [facility] Work Phone: 07-30-2018 14:53-0500 Diastolic blood pressure 65 mm[Hg] Conversion Provider Work Phone: [facility] Work Phone: 07-30-2018 14:53-0500 Heart rate 103 /min Conversion Provider Work Phone: [facility] Work Phone: 07-30-2018 14:53-0500 Inhaled oxygen concentration 21 % Conversion Provider Work Phone: [facility] Work Phone: 07-30-2018 14:53-0500 Inhaled oxygen flow rate 0 L/min Conversion Provider Work Phone: [facility] Work Phone: 07-30-2018 14:53-0500 Pulse Oximetry 98 % Kamila Nagel [facility] Work Phone: 07-30-2018 14:53-0500 SaO2% (BldA) [Mass fraction] 98 % Conversion Provider Work Phone: [facility] Work Phone: 07-30-2018 14:53-0500 Systolic blood pressure 120 mm[Hg] Conversion Provider Work Phone: [facility] Work Phone: 07-22-2018 14:36-0500 Body height 156.72 cm Conversion Provider Work Phone: [facility] Work Phone: 07-22-2018 14:36-0500 Body mass index (BMI) [Percentile] 93 {percentile} Kamiladesiree Nagel [facility] Work Phone: 07-22-2018 14:36-0500 Body mass index (BMI) [Percentile] 93 % Conversion Provider Work Phone: [facility] Work Phone: 07-22-2018 14:36-0500 Body mass index (BMI) [Ratio] 28.8 kg/m2 Conversion Provider Work Phone: [facility] Work Phone: 07-22-2018 14:36-0500 Body surface area Derived from formula 1.71 m2 Conversion Provider Work Phone: [facility] Work Phone: 07-22-2018 14:36-0500 Body temperature 97.2 [degF] Conversion Provider Work Phone: [facility] Work Phone: 07-22-2018 14:36-0500 Body weight 70.77 kg Conversion Provider Work Phone: [facility] Work Phone: 07-22-2018 14:36-0500 Diastolic blood pressure 70 mm[Hg] Conversion Provider Work Phone: [facility] Work Phone: 07-22-2018 14:36-0500 Heart rate 83 /min Conversion Provider Work Phone: [facility] Work Phone: 07-22-2018 14:36-0500 Inhaled oxygen concentration 21 % Conversion Provider Work Phone: [facility] Work Phone: 07-22-2018 14:36-0500 Inhaled oxygen flow rate 0 L/min Conversion Provider Work Phone: [facility] Work Phone: 07-22-2018 14:36-0500 Pulse Oximetry 100 % Kamila Nagel [facility] Work Phone: 07-22-2018 14:36-0500 SaO2% (BldA) [Mass fraction] 100 % Conversion Provider Work Phone: [facility] Work Phone: 07-22-2018 14:36-0500 Systolic blood pressure 112 mm[Hg] Conversion Provider Work Phone: [facility] Work Phone: 06-02-2018 17:49-0500 Body Temperature 97.59 [degF] Madeleine Frey [facility] 06-02-2018 17:49-0500 BP Diastolic 68 mm[Hg] Madeleine Frey [facility] 06-02-2018 17:49-0500 BP Systolic 120 mm[Hg] Madeleine Frey [facility] 06-02-2018 17:49-0500 Pulse (Heart Rate) 106 /min Madeleine Frey [facility] 06-02-2018 17:49-0500 Pulse Oximetry 99 % Madeleine Frey [facility] 06-02-2018 17:49-0500 Respiratory Rate 18 /min Madeleine Frey [facility] 06-02-2018 16:19-0500 BMI (Body Mass Index) 28.68 kg/m2 Madeleine [facility] 06-02-2018 16:19-0500 Height 157.[address] [facility] 06-02-2018 16:19-0500 Weight 71.[address] [facility] 04-29-2018 12:52-0500 BMI (Body Mass Index) 28.03 kg/m2 [facility] 04-29-2018 12:52-0500 Body Temperature 97.5 [degF] [facility] 04-29-2018 12:52-0500 BP Diastolic 71 mm[Hg] [facility] 04-29-2018 12:52-0500 BP Systolic 113 mm[Hg] [facility] 04-29-2018 12:52-0500 BSA (Body Surface Area) 1.74 m2 [facility] 04-29-2018 12:52-0500 Height 157.48 cm [facility] 04-29-2018 12:52-0500 Pulse (Heart Rate) 91 /min [facility] 04-29-2018 12:52-0500 Pulse Oximetry 100 % [facility] 04-29-2018 12:52-0500 Weight 69.51 kg [facility] 04-29-2018 10:52-0500 Body height 157.48 cm Conversion Provider Work Phone: [facility] Work Phone: 04-29-2018 10:52-0500 Body mass index (BMI) [Ratio] 28 kg/m2 Conversion Provider Work Phone: [facility] Work Phone: 04-29-2018 10:52-0500 Body surface area Derived from formula 1.71 m2 Conversion Provider Work Phone: [facility] Work Phone: 04-29-2018 10:52-0500 Body temperature 97.5 [degF] Conversion Provider Work Phone: [facility] Work Phone: 04-29-2018 10:52-0500 Body weight 69.4 kg Conversion Provider Work Phone: [facility] Work Phone: 04-29-2018 10:52-0500 Diastolic blood pressure 71 mm[Hg] Conversion Provider Work Phone: [facility] Work Phone: 04-29-2018 10:52-0500 Heart rate 91 /min Conversion Provider Work Phone: [facility] Work Phone: 04-29-2018 10:52-0500 Systolic blood pressure 113 mm[Hg] Conversion Provider Work Phone: [facility] Work Phone: 02-17-2018 12:32-0400 BMI (Body Mass Index) 27.15 kg/m2 Tia [facility] 02-17-2018 12:32-0400 Body Temperature 97.31 [degF] [facility] 02-17-2018 12:32-0400 BP Diastolic 59 mm[Hg] [facility] 02-17-2018 12:32-0400 BP Systolic 111 mm[Hg] [facility] 02-17-2018 12:32-0400 BSA (Body Surface Area) 1.76 m2 [facility] 02-17-2018 12:32-0400 Height 160.02 cm [facility] 02-17-2018 12:32-0400 Pulse (Heart Rate) 92 /min [facility] 02-17-2018 12:32-0400 Pulse Oximetry 98 % [facility] 02-17-2018 12:32-0400 Respiratory Rate 21 /min [facility] 02-17-2018 12:32-0400 Weight 69.51 kg [facility] 02-17-2018 11:32-0400 BMI (Body Mass Index) 27.15 kg/m2 [facility] 02-17-2018 11:32-0400 Body Temperature 97.31 [degF] [facility] 02-17-2018 11:32-0400 BP Diastolic 59 mm[Hg] [facility] 02-17-2018 11:32-0400 BP Systolic 111 mm[Hg] [facility] 02-17-2018 11:32-0400 BSA (Body Surface Area) 1.76 m2 [facility] 02-17-2018 11:32-0400 Height 160.02 cm [facility] 02-17-2018 11:32-0400 Pulse (Heart Rate) 92 /min Tia [facility] 02-17-2018 11:32-0400 Pulse Oximetry 98 % [facility] 02-17-2018 11:32-0400 Respiratory Rate 21 /min [facility] 02-17-2018 11:32-0400 Weight 69.51 kg [facility] 02-17-2018 09:32-0400 Body height 160.02 cm Conversion Provider Work Phone: [facility] Work Phone: 02-17-2018 09:32-0400 Body mass index (BMI) [Ratio] 27.1 kg/m2 Conversion Provider Work Phone: [facility] Work Phone: 02-17-2018 09:32-0400 Body surface area Derived from formula 1.73 m2 Conversion Provider Work Phone: [facility] Work Phone: 02-17-2018 09:32-0400 Body temperature 97.31 [degF] Conversion Provider Work Phone: [facility] Work Phone: 02-17-2018 09:32-0400 Body weight 69.4 kg Conversion Provider Work Phone: [facility] Work Phone: 02-17-2018 09:32-0400 Diastolic blood pressure 59 mm[Hg] Conversion Provider Work Phone: [facility] Work Phone: 02-17-2018 09:32-0400 Heart rate 92 /min Conversion Provider Work Phone: [facility] Work Phone: 02-17-2018 09:32-0400 Respiratory rate 21 /min Conversion Provider Work Phone: [facility] Work Phone: 02-17-2018 09:32-0400 Systolic blood pressure 111 mm[Hg] Conversion Provider Work Phone: [facility] Work Phone: 07-12-2017 11:26-0500 BMI (Body Mass Index) 30.34 kg/m2 [facility] 07-12-2017 11:26-0500 Body Temperature 99.2 [degF] [facility] 07-12-2017 11:26-0500 BP Diastolic 80 mm[Hg] [facility] 07-12-2017 11:26-0500 BP Systolic 124 mm[Hg] [facility] 07-12-2017 11:26-0500 BSA (Body Surface Area) 1.86 m2 [facility] 07-12-2017 11:26-0500 Height 160.02 cm [facility] 07-12-2017 11:26-0500 Pulse (Heart Rate) 109 /min [facility] 07-12-2017 11:26-0500 Pulse Oximetry 99 % [facility] 07-12-2017 11:26-0500 Respiratory Rate 22 /min [facility] 07-12-2017 11:26-0500 Weight 77.68 kg [facility] 07-12-2017 10:26-0500 BMI (Body Mass Index) 30.34 kg/m2 T[facility] 07-12-2017 10:26-0500 Body Temperature 99.2 [degF] [facility] 07-12-2017 10:26-0500 BP Diastolic 80 mm[Hg] [facility] 07-12-2017 10:26-0500 BP Systolic 124 mm[Hg] [facility] 07-12-2017 10:26-0500 BSA (Body Surface Area) 1.86 m2 [facility] 07-12-2017 10:26-0500 Height 160.02 cm [facility] 07-12-2017 10:26-0500 Pulse (Heart Rate) 109 /min [facility] 07-12-2017 10:26-0500 Pulse Oximetry 99 % [facility] 07-12-2017 10:26-0500 Respiratory Rate 22 /min [facility] 07-12-2017 10:26-0500 Weight 77.68 kg [facility] 06-08-2017 12:15-0500 BMI (Body Mass Index) 29.79 kg/m2 [facility] 06-08-2017 12:15-0500 Body Temperature 99.7 [degF] [facility] 06-08-2017 12:15-0500 BP Diastolic 71 mm[Hg] [facility] 06-08-2017 12:15-0500 BP Systolic 112 mm[Hg] [facility] 06-08-2017 12:15-0500 BSA (Body Surface Area) 1.84 m2 [facility] 06-08-2017 12:15-0500 Height 160.02 cm [facility] 06-08-2017 12:15-0500 Pulse (Heart Rate) 82 /min [facility] 06-08-2017 12:15-0500 Respiratory Rate 20 /min [facility] 06-08-2017 12:15-0500 Weight 76.29 kg [facility] 06-08-2017 11:15-0500 BMI (Body Mass Index) 29.79 kg/m2 [facility] 06-08-2017 11:15-0500 Body Temperature 99.7 [degF] [facility] 06-08-2017 11:15-0500 BP Diastolic 71 mm[Hg] [facility] 06-08-2017 11:15-0500 BP Systolic 112 mm[Hg] [facility] 06-08-2017 11:15-0500 BSA (Body Surface Area) 1.84 m2 [facility] 06-08-2017 11:15-0500 Height 160.02 cm [facility] 06-08-2017 11:15-0500 Pulse (Heart Rate) 82 /min [facility] 06-08-2017 11:15-0500 Respiratory Rate 20 /min [facility] 06-08-2017 11:15-0500 Weight 76.29 kg [facility] 10-19-2016 14:32-0400 BMI (Body Mass Index) 26.09 kg/m2 [facility] 10-19-2016 14:32-0400 Body Temperature 98.6 [degF] [facility] 10-19-2016 14:32-0400 BP Diastolic 81 mm[Hg] [facility] 10-19-2016 14:32-0400 BP Systolic 125 mm[Hg] [facility] 10-19-2016 14:32-0400 BSA (Body Surface Area) 1.76 m2 [facility] 10-19-2016 14:32-0400 Height 162.56 cm [facility] 10-19-2016 14:32-0400 Pulse (Heart Rate) 108 /min [facility] 10-19-2016 14:32-0400 Pulse Oximetry 97 % [facility] 10-19-2016 14:32-0400 Respiratory Rate 17 /min [facility] 10-19-2016 14:32-0400 Weight 68.95 kg [facility] 10-19-2016 13:32-0400 BMI (Body Mass Index) 26.09 kg/m2 [facility] 10-19-2016 13:32-0400 Body Temperature 98.6 [degF] [facility] 10-19-2016 13:32-0400 BP Diastolic 81 mm[Hg] [facility] 10-19-2016 13:32-0400 BP Systolic 125 mm[Hg] [facility] 10-19-2016 13:32-0400 BSA (Body Surface Area) 1.76 m2 [facility] 10-19-2016 13:32-0400 Height 162.56 cm [facility] 10-19-2016 13:32-0400 Pulse (Heart Rate) 108 /min [facility] 10-19-2016 13:32-0400 Pulse Oximetry 97 % [facility] 10-19-2016 13:32-0400 Respiratory Rate 17 /min [facility] 10-19-2016 13:32-0400 Weight 68.95 kg [facility] 07-16-2016 18:59-0500 BMI (Body Mass Index) 23.52 kg/m2 [facility] 07-16-2016 18:59-0500 Body Temperature 97.8 [degF] [facility] 07-16-2016 18:59-0500 BP Diastolic 78 mm[Hg] [facility] 07-16-2016 18:59-0500 BP Systolic 125 mm[Hg] [facility] 07-16-2016 18:59-0500 BSA (Body Surface Area) 1.68 m2 [facility] 07-16-2016 18:59-0500 Height 162.56 cm [facility] 07-16-2016 18:59-0500 Pulse (Heart Rate) 107 /min T[facility] 07-16-2016 18:59-0500 Pulse Oximetry 98 % [facility] 07-16-2016 18:59-0500 Respiratory Rate 17 /min [facility] 07-16-2016 18:59-0500 Weight 62.14 kg [facility] 07-16-2016 17:59-0500 BMI (Body Mass Index) 23.52 kg/m2 [facility] 07-16-2016 17:59-0500 Body Temperature 97.8 [degF] [facility] 07-16-2016 17:59-0500 BP Diastolic 78 mm[Hg] [facility] 07-16-2016 17:59-0500 BP Systolic 125 mm[Hg] [facility] 07-16-2016 17:59-0500 BSA (Body Surface Area) 1.68 m2 [facility] 07-16-2016 17:59-0500 Height 162.56 cm [facility] 07-16-2016 17:59-0500 Pulse (Heart Rate) 107 /min [facility] 07-16-2016 17:59-0500 Pulse Oximetry 98 % [facility] 07-16-2016 17:59-0500 Respiratory Rate 17 /min [facility] 07-16-2016 17:59-0500 Weight 62.14 kg [facility] 05-03-2016 11:25-0500 BMI (Body Mass Index) 22.76 kg/m2 [facility] 05-03-2016 11:25-0500 Body Temperature 98.4 [degF] [facility] 05-03-2016 11:25-0500 BP Diastolic 60 mm[Hg] [facility] 05-03-2016 11:25-0500 BP Systolic 110 mm[Hg] [facility] 05-03-2016 11:25-0500 BSA (Body Surface Area) 1.61 m2 [facility] 05-03-2016 11:25-0500 Height 160.02 cm [facility] 05-03-2016 11:25-0500 Pulse (Heart Rate) 95 /min [facility] 05-03-2016 11:25-0500 Pulse Oximetry 99 % [facility] 05-03-2016 11:25-0500 Respiratory Rate 17 /min [facility] 05-03-2016 11:25-0500 Weight 58.29 kg [facility] 05-03-2016 10:25-0500 BMI (Body Mass Index) 22.76 kg/m2 [facility] 05-03-2016 10:25-0500 Body Temperature 98.4 [degF] [facility] 05-03-2016 10:25-0500 BP Diastolic 60 mm[Hg] [facility] 05-03-2016 10:25-0500 BP Systolic 110 mm[Hg] [facility] 05-03-2016 10:25-0500 BSA (Body Surface Area) 1.61 m2 [facility] 05-03-2016 10:25-0500 Height 160.02 cm [facility] 05-03-2016 10:25-0500 Pulse (Heart Rate) 95 /min [facility] 05-03-2016 10:25-0500 Pulse Oximetry 99 % [facility] 05-03-2016 10:25-0500 Respiratory Rate 17 /min [facility] 05-03-2016 10:25-0500 Weight 58.29 kg [facility] Encounters Encounter Date Encounter Type Care Provider Facility Start: 03-13-2024 ambulatory OBI L FLORO Not Peg ilable Start: 02-25-2024 End: 02-25-2024 ambulatory OBI L FLORO Not Available Start: 02-11-2024 End: 02-11-2024 ambulatory OBI L FLORO Not Available Start: 02-03-2024 End: 02-03-2024 ambulatory OBI L FLORO Not Available Start: 01-28-2024 End: 01-28-2024 ambulatory OBI L FLORO Not Available Start: 10-15-2021 End: 10-16-2021 Emergency department patient visit CAROL R[facility] Start: 09-15-2021 End: 09-15-2021 ambulatory Shaylee Weaverbrook REFRIGERATION INSULATOR Work Phone: [facility] Work Phone: Start: 07-12-2021 End: 07-16-2021 Evaluation and management of inpatient SOFIA S [facility] Start: 08-25-2019 End: 08-25-2019 Established patient Tanya Comer Work Phone: [facility] Work Phone: Start: 08-21-2019 End: 08-21-2019 Established patient Tanya Comer Work Phone: [facility] Work Phone: Start: 08-21-2019 End: 08-21-2019 ambulatory Kamila Whatleyy Work Phone: [facility] Work Phone: Start: 08-21-2019 End: 08-21-2019 Patient encounter procedure Yaz Lyon [facility] Work Phone: Start: 08-07-2019 End: 08-07-2019 Emergency department patient visit Physician No [facility] Start: 08-07-2019 End: 08-07-2019 Emergency department patient visit [facility] EM[facility] Comment on above: Folliculitis (Primar y Dx) Start: 09-05-2018 End: 09-05-2018 Emergency department patient visit PHYSICIAN NO [facility] Start: 09-05-2018 End: 09-05-2018 Emergency department patient visit Luan Dillon Work Phone: [facility] Emergency Department Comment on above: Influenza A (Primary Dx) Start: 09-03-2018 End: 09-04-2018 Emergency department patient visit PHYSICIAN NO [facility] Start: 09-03-2018 End: 09-03-2018 Emergency department patient visit Rena Rayo Work Phone: [facility] Emergency Department Comment on above: Influenza (Primary D x) Start: 09-02-2018 End: 09-02-2018 Established patient Kati Porras Work Phone: [facility] Work Phone: Start: 09-02-2018 End: 09-02-2018 Adolescent care Kamila Nagel CNP Work Phone: [facility] Work Phone: Start: 09-02-2018 End: 09-02-2018 ambulatory Kamila Nagel Work Phone: [facility] Work Phone: Start: 09-02-2018 End: 09-02-2018 General Kamila Nagel CNP Work Phone: [facility] Work Phone: Start: 08-22-2018 End: 08-22-2018 Established patient Alesia Stover Work Phone: [facility] Work Phone (unformatted): [phone] Start: 08-20-2018 End: 08-20-2018 Established patient Alesia Stover Work Phone: [facility] Work Phone (unformatted): [phone] Start: 07-30-2018 End: 07-30-2018 Established patient Alesia Stover Work Phone: [facility] Work Phone (unformatted): [phone] Start: 07-22-2018 End: 07-22-2018 Established patient Alesia Stover Work Phone: [facility] Work Phone (unformatted): [phone] Start: 06-02-2018 End: 06-02-2018 Emergency department patient visit PHYSICIAN LAWSON [facility] Start: 06-02-2018 End: 06-02-2018 Emergency department patient visit Madeleine Claudia Tk Work Phone: [facility] Emergency Department Comment on above: Sprain of right ankl e, unspecified ligament, initial encounter (Primary Dx); Contusion of nose, initial encounter Start: 04-29-2018 End: 04-29-2018 Patient encounter procedure Conversion Provider Work Phone: [facility] Work Phone: Start: 04-29-2018 Office outpatient vi sit 25 minutes Tia Jolanta Other [facility] Start: 02-17-2018 End: 02-17-2018 Patient encounter procedure Conversion Provider Work Phone: [facility] Work Phone: Start: 02-17-2018 Office outpatient vi sit 15 minutes Tia Jolanta Other [facility] Start: 02-17-2018 Medical Tia Jolanta Other [facility] Start: 07-12-2017 End: 07-12-2017 Patient encounter procedure Conversion Provider Work Phone: [facility] Work Phone: Start: 07-12-2017 End: 07-12-2017 Office outpatient visit 15 minutes Tia Jolanta Other [facility] Start: 06-08-2017 End: 06-08-2017 Patient encounter procedure Conversion Provider Work Phone: [facility] Work Phone: Start: 06-08-2017 Comprehensive metabo lic panel [facility] Start: 06-08-2017 End: 06-08-2017 Office outpatient visit 15 minutes Danica Glover Other [employer] Start: 10-19-2016 End: 10-19-2016 Patient encounter procedure Conversion Provider Work Phone: [facility] Work Phone: Start: 10-19-2016 End: 10-19-2016 Behavioral Health Christiana Christy Other [employer] Start: 10-19-2016 Cul prsmptv pthgnc organism scrn w/[place] estimj [facility] Start: 10-19-2016 Iadna chlamydia trachomatis amplified probe tq [facility] Start: 10-19-2016 End: 10-19-2016 Office outpatient visit 15 minutes Madisyn Daviser Other [facility] Start: 07-16-2016 End: 07-16-2016 Office outpatient visit 15 minutes Madisyn Daviser Other José Chav[facility] [employer] Start: 07-16-2016 End: 07-16-2016 Patient encounter procedure Conversion Provider Work Phone: [facility] Work Phone: Start: 05-07-2016 [facility] Start: 05-07-2016 End: 05-07-2016 Dental Selena Zoranes Other [facility] [place] Start: 05-03-2016 End: 05-03-2016 Patient encounter procedure Conversion Provider Work Phone: [facility] Work Phone: Start: 05-03-2016 Routine infant or ch ild health check [facility] Start: 05-03-2016 End: 05-03-2016 Office outpatient new 20 minutes Madisyn Meier Other [employer] [employer] Procedures Date Procedure Procedure Detail Performing Clinician Start: 09-15-2021 Imm. administration COVID19 [employer] RE[employer]ERATION INSULATOR Work Phone: Start: 09-15-2021 SARS-CoV-2 vaccine, 0.5ml [employer] & Koudai REFRIGERATION INSULATOR Work Phone: Start: 08-25-2019 Psychotherapy w/enmanuel ent 30 minutes Tanya Comer Work Phone: Start: 08-21-2019 Caries risk assess low risk Yaz Lyon Start: 08-21-2019 General Periodic/Com p Exam*HPWO* Yaz Lyon Start: 08-21-2019 Iaadiadoo influenza Mague Nagel Work Phone: Start: 08-21-2019 Iaadiadoo streptococ cus group a Kamila Shona Work Phone: Start: 08-21-2019 Oral Health Integration Yza Lyon Start: 08-21-2019 Pain management Kamila Shona Start: 08-21-2019 past medical/surgica l history [use for free text] Kamila Shona Start: 08-21-2019 Psychotherapy w/enmanuel ent 30 minutes Tanya Souleymane Work Phone: Start: 08-21-2019 taking ldkx-skq-ypyi ter medications Kamila Nagel Start: 08-21-2019 Topical fluoride varnish Yaz Lyon Start: 07-26-2019 Throat culture Comment on above: Performed By: #### T HROAT #### [facility] CLIA:[id number] [address] [place] [address] Start: 09-05-2018 Complete blood count with white cell differential, automated Luan Dillon Work Phone: Start: 09-05-2018 Complete blood count with white cell differential, manual Luan Bonilla Dillon Work Phone: Start: 09-05-2018 Comprehensive metabo lic 2000 panel - Serum or Plasma Luan Bonilla Dillon Work Phone: Start: 09-05-2018 LIGHT BLUE TOP Luan Es tlow Dillon Work Phone: Start: 09-05-2018 LIGHT GREEN TOP Luan E stlow Dillon Work Phone: Start: 09-05-2018 RAINBOW DRAW Luan price Dillon Work Phone: Start: 09-04-2018 Radiologic exam ches t single view Rena Rayo Work Phone: Start: 09-04-2018 Ct abdomen & pelvis w/contrast material Rena Rayo Work Phone: Start: 09-04-2018 Choriogonadotropin ( test) [Presence] in Urine Rena Rayo Work Phone: Start: 09-04-2018 Urinalysis Rena Rayo Work Phone: Start: 09-04-2018 LIGHT BLUE TOP Rena Rayo Work Phone: Start: 09-04-2018 LIGHT GREEN TOP Rena Rayo Work Phone: Start: 09-04-2018 RAINBOW DRAW Rena Rayo Work Phone: Start: 09-04-2018 Basic metabolic 2000 panel - Serum or Plasma Rena Rayo Work Phone: Start: 09-04-2018 Complete blood count with white cell differential, automated Rena Rayo Work Phone: Start: 09-04-2018 Complete blood count with white cell differential, manual Rena Rayo Work Phone: Start: 09-04-2018 Hepatic function 200 0 panel - Serum or Plasma Rena Rayo Work Phone: Start: 09-04-2018 Lipase [Enzymatic activity/volume] in Serum or Plasma Rena Rayo Work Phone: Start: 09-04-2018 Troponin measurement Sa kwaku Rayo Work Phone: Start: 09-03-2018 Influenza virus A AN D B antigen assay Rena Rayo Work Phone: Start: 09-03-2018 Streptococcus pyogen es Ag [Presence] in Throat Rena Rayo Work Phone: Start: 09-02-2018 H/O: surgery Kamila rosales CNP Work Phone: Start: 09-02-2018 Psychotherapy w/enmanuel ent 30 minutes Kati Porras Work Phone: Start: 09-02-2018 taking medication Axel Nagel CROSSING TENDER Work Phone: Start: 09-02-2018 Urine test visual color cmprsn meths Kamila Nagel Work Phone: Start: 09-02-2018 Urnls dip stick/tabl et rgnt non-auto w/o micrscp Kamila Nagel Work Phone: Start: 08-20-2018 Urnls dip stick/tabl et rgnt non-auto w/o micrscp Tia [place] Work Phone: Start: 07-30-2018 Iaadiadoo streptococ cus group a Tia [place] Work Phone: Start: 07-30-2018 Ketorolac tromethamine inj Tia [place] Work Phone: Start: 07-30-2018 Therapeutic prophyla ctic/dx injection subq/im Tia [place] Work Phone: Start: 07-22-2018 Appendectomy Conversion Provider Work Phone: Start: 06-02-2018 End: 06-02-2018 X-ray of right ankle Madeleine Frey Work Phone: Start: 06-02-2018 End: 06-02-2018 Radex nasal bones complete minimum 3 views Madeleine Frey Work Phone: Start: 04-29-2018 PHQ9 Administered Tia R [facility] Start: 04-29-2018 RAAPS Tia Ruther ramachandran Start: 04-29-2018 Iaadiadoo streptococ cus group a Tia [place] Start: 06-12-2017 Dietitian Tia Ruther ramachandran Start: 06-08-2017 25 hydroxy includes fractions if performed Tia [place] Start: 06-08-2017 Assay of thyroid sti mulating hormone tsh Tia [place] Start: 06-08-2017 Blood count complete auto&auto difrntl wbc Tia [place] Start: 06-08-2017 End: 06-08-2017 Comprehensive metabolic panel Tia Jolanta Start: 06-08-2017 Lipid panel Tia Ruther ramachandran Start: 06-08-2017 Pt-focused hlth risk assmt score doc stnd instrm Tia [place] Start: 06-08-2017 End: 06-08-2017 Urine test visual color cmprsn meths Tia [place] Start: 06-08-2017 End: 06-08-2017 Hemoglobin glycosylated a1c Tia [facility] [address] Start: 10-19-2016 End: 10-19-2016 Cul prsmptv pthgnc organism scrn w/colony estimj [facility] Start: 10-19-2016 End: 10-19-2016 Iadna chlamydia trachomatis amplified probe tq [facility] Start: 10-19-2016 Iadna neisseria gono rrhoeae amplified probe tq [facility] Start: 10-19-2016 Medroxyprogesterone acetate [facility] Start: 10-19-2016 Medroxyprogesterone acetate Injection *CONTRACEPTION * GENERIC DEPO PROVERA* (150mg/ml dose) [facility] Start: 10-19-2016 Psychotherapy w/enmanuel ent 30 minutes [facility] Start: 10-19-2016 Therapeutic prophyla ctic/dx injection subq/im [facility] Start: 10-19-2016 End: 10-19-2016 HIV SCREENING *in-house* [facility] Start: 10-19-2016 End: 10-19-2016 Urine test visual color cmprsn meths [facility] Start: 10-19-2016 End: 10-19-2016 Urnls dip stick/tablet rgnt non-auto w/o micrscp [facility] Start: 07-16-2016 End: 07-16-2016 HIV Refused [facility] Start: 07-16-2016 End: 07-16-2016 Urine test visual color cmprsn meths [facility] Start: 07-16-2016 End: 07-16-2016 Urnls dip stick/tablet rgnt non-auto w/o micrscp [facility] Start: 07-16-2016 Medroxyprogesterone acetate Injection *CONTRACEPTION * GENERIC DEPO PROVERA* (150mg/ml dose) [facility] Start: 05-07-2016 HIV SCREENING REFUSE D* in house [facility] Start: 05-07-2016 NEW DENTAL PATIENT [facility] Start: 05-07-2016 ORAL HYGIENE INSTRUCTIONS [facility] Start: 05-03-2016 Medroxyprogesterone acetate Injection *CONTRACEPTION * GENERIC DEPO PROVERA* (150mg/ml dose) Alesia Stover Start: 05-03-2016 PHQ9 Administered Tia Tori estevez Start: 05-03-2016 RAAPS Tia Deandre ramachandran Start: 05-03-2016 End: 05-03-2016 Urine test visual color cmprsn meths Alesia Stover NEGATED: Highlighted row has not occurred!Start: 08-25-2019 previous hospitalizations Kamila Nagel NEGATED: Highlighted row has not occurred!Start: 07-30-2018 MIGRAINE HEADACHE Conversion Provider Work Phone: Plan of Treatment Date Care Activity Detail Author Start: 05-03-2026 Tetanus vaccination TETANUS EVERY [address] [facility] Start: 12-29-2019 Medical Established Patient [facility] Work Phone: Start: 10-05-2019 Dental Comp Exam [facility] Work Phone: Start: 08-25-2019 Medical Established Patient [facility] Work Phone: Start: 08-22-2019 Flu A & B Rapid, In House [facility] Work Phone: Start: 02-22-2019 Influenza vaccination Flu vaccine (#1) [facility] Work Phone: Start: 11-03-2018 [facility]QHC visit, estab pt Established Patient [facility] Work Phone (unformatted): [phone] Start: 10-02-2018 [facility] Work Phone: Start: 09-02-2018 End: 09-03-2018 Urine test visual color cmprsn meths Urine Test, In House [facility] Work Phone: Start: 09-02-2018 End: 09-03-2018 Urnls dip stick/tablet rgnt non-auto w/o micrscp Urinalysis Dipstick,In House [facility] Work Phone: Start: 09-02-2018 End: 10-02-2018 [facility] Work Phone: Start: 08-04-2018 [facility] visit, estab pt Established Patient [facility] Work Phone: Start: 02-22-2018 Influenza vaccination SEQUENTIAL INFLUENZA VACCINE (#1) [facility] Start: 02-22-2018 Influenza vaccination given SEQUENTIAL INFLUENZA VACCINE (#1) [facility] Start: 2017 Chlamydia screen Chlamydia screen [employer] Phone: Start: 2017 Meningococcal conjugate vaccination MENINGOCOCCAL VACCINE (1 - 2-dose series) [facility] Start: 2017 Meningococcus vaccination MENINGOCOCCAL VACCINE (1 of 1 - 2-dose series) [facility] Start: 2016 HIV screen HIV screen [employer] Phone: Start: 2016 Vaccination for human papillomavirus HPV VACCINES (1 - Female 3-dose series) [facility] Start: 05-31-2016 DTaP/Tdap/Td vaccine (2 - Td) DTaP/Tdap/Td vaccine (2 - Td) [employer] Phone: Start: 05-31-2016 Measles,Mumps,Rubella (MMR) vaccine (1 of 2 - Standard series) Measles,Mumps,Rubella (MMR) vaccine (1 of 2 - Standard series) [employer] Phone: Start: 05-31-2016 Varicella vaccine (2 of 2 - 13+ 2-dose series) Varicella vaccine (2 of 2 - 13+ 2-dose series) [employer] Phone: Start: 2014 Varicella vaccination VARICELLA VACCINES (1 of 2 - 2-dose adolescent series) [facility] Start: 2012 Vaccination for human papillomavirus HPV VACCINES (1 - Female 3-dose series) [facility] Start: 2008 Tetanus, diphtheria and acellular pertussis vaccination DTAP VACCINES (1 - Tdap) [facility] Start: 2008 Vaccination for diphtheria, pertussis, and tetanus DTAP VACCINES (1 - Tdap) [facility] Start: 2002 Hepatitis A immunization HEPATITIS A VACCINES (1 of 2 - 2-dose series) [facility] Start: 2002 Damioks-brcgn-darmvgb vaccination MMR VACCINES (1 of 2 - Standard series) [facility] Start: 2001 Inactivated poliovirus vaccine (product) [facility] Start: 2001 Polio vaccine (1 of 3 - 4-dose series) Polio vaccine (1 of 3 - 4-dose series) [employer] Phone: Start: 2001 Hepatitis B vaccination HEPATITIS B VACCINES (1 of 3 - 3-dose primary series) [facility] Start: 2001 Hepatitis B vaccine (1 of 3 - 3-dose primary series) Hepatitis B vaccine (1 of 3 - 3-dose primary series) [employer] Phone: Start: 2001 Tetanus vaccination TETANUS EVERY [address] [facility] End: 09-03-2018 Bacteria identified Aer cx Nom (Unsp spec) Urine Aerobic Culture Routine Once for 1 Occurrences starting 09/03/2018 until 09/03/2018 [facility] Comment on above: Once for 1 Occurrences starting 09/04/19 until 09/03/2018 Bacteria identified Aer cx Nom (Unsp spec) Urine Aerobic Culture Routine 09/03/2018 8:[address] [facility] End: 09-03-2018 S. pyogenes Org specific cx Ql (Throat) Strep A Culture, Throat EDWAR Once for 1 Occurrences starting 09/03/2018 until 09/03/2018, [address] [facility] Comment on above: Once for 1 Occurrences starting 09/04/19 until 09/03/2018, 1 completed S. pyogenes Org specific cx Ql (Throat) Strep A Culture, Throat Routine 09/03/2018 7:[address] [facility] Immunizations Immunization Date Immunization Notes Care Provider Elizabeth acevedo 09-15-2021 [employer] COVID 19 Vaccine Shaylee Gonzales REFRIGERATION INSULATOR Work Phone: [facility] Work Phone: Comment on above: Note: Patient tolera jimmy well. No signs or symptoms of adverse reactions. Patient waited a minimum of 15 minutes. 09-02-2018 meningococcal B vacc ine, recombinant, OMV, adjuvanted; Translations: [Meningococcal Recombinant Protein /Bexsero,VFC] Kamila Nagel CROSSING TENDER Work Phone: [facility] Work Phone: 09-02-2018 meningococcal polysaccharide (groups A, C, Y and W-135) diphtheria toxoid conjugate vaccine (MCV4P) Kamila Whatleyarik GRIFFITH Work Phone: [facility] Work Phone: 09-02-2018 Meningococcal, MCV4, unspecified conjugate formulation(groups A, C, Y and W-135) Kamila Whatleyarik GRIFFITH Work Phone: [facility] Work Phone: 09-02-2018 Ea.Addnl.Imm.Admin.T hrou gh 19 yrs Any Route Kamila Whatleyarik GRIFFITH Work Phone: [facility] Work Phone: 09-02-2018 Imm.Admin.Through 19 yrs Any Route FIRST Injection Kamila Whatleyarik GRIFFITH Work Phone: [facility] Work Phone: 06-08-2017 hepatitis A vaccine, pediatric/adolescent dosage, 2 dose schedule; Translations: [HEP A VACC PED/ADOL 2 DOSE] [facility] Comment on above: Note: HepA 06-08-2017 unknown vaccine or immune globulin; Translations: [IM ADMIN 1ST/ONLY COMPONENT] [facility] 06-08-2017 hepatitis A vaccine, unspecified formulation Conversion Provider Work Phone: [facility] Work Phone: Comment on above: Note: HepA 10-19-2016 human papilloma viru s vaccine, quadrivalent [facility] 10-19-2016 Human Papillomavirus 9-valent vaccine; Translations: [HPV VACCINE NON VALENT IM] [facility] 10-19-2016 HPV, unspecified formulation; Translations: [HPV] Conversion Provider Work Phone: [facility] Work Phone: Comment on above: Note: HPV 07-16-2016 human papilloma viru s vaccine, quadrivalent; Translations: [HPV VACCINE 4 VALENT IM] [facility] 07-16-2016 IM ADMIN EACH ADDL COMPONENT; Translations: [IM ADMIN EACH ADDL COMPONENT] [facility] 07-16-2016 HPV, unspecified formulation; Translations: [HPV] Conversion Provider Work Phone: [facility] Work Phone: Comment on above: Note: HPV 05-03-2016 hepatitis A vaccine, pediatric/adolescent dosage, 2 dose schedule; Translations: [HEP A VACC PED/ADOL 2 DOSE] [facility] Comment on above: Note: HepA 05-03-2016 human papilloma viru s vaccine, quadrivalent; Translations: [HPV VACCINE 4 VALENT IM] [facility] 05-03-2016 influenza, injectabl e, quadrivalent, preservative free; Translations: [FLU VAC NO PRSV 4 MICHEAL 3 YRS+] [facility] 05-03-2016 meningococcal polysaccharide (groups A, C, Y and W-135) diphtheria toxoid conjugate vaccine (MCV4P) [facility] 05-03-2016 Meningococcal, MCV4, unspecified conjugate formulation(groups A, C, Y and W-135); Translations: [MENINGOCOCCAL VACCINE IM] [facility] 05-03-2016 tetanus toxoid, redu maria elena diphtheria toxoid, and acellular pertussis vaccine, adsorbed; Translations: [TDAP VACCINE 7 YRS/> IM] [facility] Comment on above: Note: Tdap 05-03-2016 unknown vaccine or immune globulin; Translations: [IM ADMIN 1ST/ONLY COMPONENT] [facility] 05-03-2016 varicella virus vacc ine; Translations: [CHICKEN POX VACCINE SC] [facility] Comment on above: Note: Varicella 05-03-2016 IM ADMIN EACH ADDL COMPONENT; Translations: [IM ADMIN EACH ADDL COMPONENT] [facility] 05-03-2016 hepatitis A vaccine, unspecified formulation Conversion Provider Work Phone: [facility] Work Phone: Comment on above: Note: HepA 05-03-2016 influenza virus vacc ine, unspecified formulation Conversion Provider Work Phone: [facility] Work Phone: Comment on above: Note: Influenza 05-03-2016 influenza, high dose seasonal, preservative-free [facility] Work Phone: Comment on above: Note: Influenza 05-03-2016 MENINGOCOCCAL Conversion Pro vider Work Phone: [facility] Work Phone: Comment on above: Note: Meningococcal 05-03-2016 meningococcal ACWY vaccine, unspecified formulation [facility] Work Phone: Comment on above: Note: Meningococcal Payers Date Payer Category Payer Unknown [id number] 2017 Medicaid xxxxxxxxx [id number] 2016 Private Health Insurance [id number] 2016 Medicaid [id number]. [id number] 2013 Private Health Insurance [id number] 2001 Unknown [id number] 2001 Unknown [id number] [id number] 2001 Unknown [id number] [id number] 1981 Unknown [id number] [id number] 1981 Unknown [id number] 2.16.8 [id number] 1981 Unknown [id number] 2.16.8 [id number] 1981 Unknown [id number] 2.16.8 [id number] 1981 Unknown [id number] 2.16.8 [id number] 1981 Unknown [id number] [id number] Social History Date Type Detail Facility Start: [facility] Start: coffee/pop [facility] Start: 06-02-2018 End: 06-04-2018 Tobacco smoking status MAIS Never smoker [facility] Sex Assigned At Not on file [facility] Assertion Family problems (finding) [facility] Work Phone: Assertion Emotional stress (finding) [facility] Work Phone: Assertion [facility] Work Phone: Assertion Educational achievement (observable entity) [facility] Work Phone: Assertion Lives with paren ts (finding) [facility] Work Phone: Assertion Finding of educa tional achievement (finding) [facility] Work Phone: Assertion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
[2024-03-17 19:51] LABS: Hematocrit 36.9 % (36.0-48.0); Hemoglobin 11.4 g/dL (12.0-16.0); Mean Corpuscular HGB Conc 30.9 g/dL (29.9-35.2); Mean Corpuscular Hemoglobin 26.9 pg (26.7-34.0); Mean Platelet Volume 11.6 fL (9.5-13.5); Platelet Count 242 10^3/uL (150-450); Red Blood Count 4.24 10^6/uL (4.20-5.40); Red Cell Distribution Width 22.1 % (11.0-15.0); White Blood Count 10.6 10^3/uL (4.0-11.0)
[2024-03-17] MEDS: OXYTOCIN/0.9 % SODIUM CHLORIDE 10 UNITS/500 ML PLAST..BAG 6 UNIT IV (20:00)
[2024-03-17] MEDS: LACTATED RINGER'S SOLUTION 1,000 ML 125 ML IV (20:01)
[2024-03-17 20:02] LABS: Amphetamine Screen Urine NEGATIVE (NEGATIVE); Barbiturates Screen Urine NEGATIVE (NEGATIVE); Benzodiazepines Screen Urine NEGATIVE (NEGATIVE); Buprenorphine Screen Urine NEGATIVE (NEGATIVE); Cannabinoid Screen Urine NEGATIVE (NEGATIVE); Cocaine Screen Urine NEGATIVE (NEGATIVE); Methadone Screen Urine NEGATIVE (NEGATIVE); Methamphetamines Screen Urine NEGATIVE (NEGATIVE); Opiate Screen Urine NEGATIVE (NEGATIVE); Oxycodone Screen Urine NEGATIVE (NEGATIVE); Phencyclidine Screen Urine NEGATIVE (NEGATIVE); Tricyclic Antidepressant Urine NEGATIVE (NEGATIVE)
[2024-03-18] VITALS (84 sets, daily range): BP systolic 113–149; BP diastolic 58–101; PULSE 73–123; TEMP 36.3–37
[2024-03-18] MEDS: LACTATED RINGER'S SOLUTION 1,000 ML 125 ML IV ×3 (03:54→18:26)
--- NOTE | 2024-03-18 09:46 | P.OBHP_ITS ---
OB - H&P: HPI History of Present Illness Chief complaint: INDUCTION : 1 Para: 0 Gestational age based on last menstrual period: 40.0 Indications for induction: other (oligohydramnios) History of Present Dating criteria: based on 3rd trimester US only care: other (late care ) Ultrasounds: normal mid trimester US Abnormal ultrasound findings: SHANTI 2.0 cm 03/16/25 complications: other complications comment: care began at 31 weeks Medical complications OB: none Labs Blood type: 0 (-) negative Rubella: nonimmune RPR/VDLR: nonreactive GBS status: negative HBsAG: negative Review of Systems ROS Status of ROS: 10 or more systems reviewed and unremarkable except as noted in history and below Musculoskeletal: Reports: back pain Psychiatric: Reports: other (patient states she has a form of autism and some anxiety) [facility] Medical History (Updated 03/18/24 @ 09:56 by OBI DEVINE APRN, TRUPTI) Oligohydramnios in third trimester ?O41.03X0 - Oligohydramnios, third trimester, not applicable or unspecified (ICD-10) Autism ?F84.0 - Autistic disorder (ICD-10) Anxiety ?F41.9 - Anxiety disorder, unspecified (ICD-10) Anemia affecting ?O99.019 - Anemia complicating , unspecified trimester (ICD-10) Surgical History (Updated 03/17/24 @ 21:17 by Lorena Mahajan) History of appendectomy ?Z90.49 - Acquired absence of other specified parts of digestive tract (ICD- 10) Family History (Updated 03/17/24 @ 21:18 by Lorena Mahajan) Grandfather Family history of diabetes mellitus Social History (Updated 03/17/24 @ 21:30 by Lorena Mahajan) Within the past year, how often did you have a drink containing alcohol: never Score interpretation: A score less than 3 is consistent with normal alcohol consumption. Smoking status: Never smoker Non-prescribed substance use: former substance user Non-prescribed substance use details: Pt admits to using marijuana until she found out she was at 30 weeks Highest level of school completed/degree received: high school graduate Are you now , , , , never or living with a partner: never Meds Home Medications and Allergies Home Medications ?Medication ?Instructions ?Recorded ?Confirmed ?Type ferrous sulfate 325 mg (65 mg 325 mg PO BID 03/17/24 03/17/24 History iron) tablet (Feosol) Allergies Allergy/AdvReac Type Severity Reaction Status Date / Time Penicillins Allergy Unknown Hives Verified 03/17/24 19:07 Exam Constitutional Vital Signs, click to edit/add: Last Vital Signs Temp 97.6 F 03/18/24 08:19 Pulse 99 H 03/18/24 09:35 Resp 16 03/18/24 08:19 BP 149/101 H 03/18/24 09:35 O2 Del Method Room Air 03/18/24 03:03 Documenting provider has reviewed patient's vital signs: yes Common normals: no apparent distress, average body habitus, oriented x3, no limitations, healthy appearing, alert and well nourished General appearance: cooperative Orientation/consciousness: Yes awake, Yes oriented to person, Yes oriented to place and Yes oriented to time HENMT Common normals: normocephalic Eye Common normals: EOMs intact bilaterally General eye: normal appearance of both eyes Neck & C-Spine Common normals: full ROM Lymph Lymphatic: no lymphadenopathy noted Chest Common normals: inspection of chest normal Respiratory Common normals: normal respiratory effort, no retractions, no use of accessory muscles and clear to auscultation bilaterally Effort & inspection: able to speak in complete sentences Cardio Common normals: regular rate and regular rhythm Rate: regular rate Rhythm: regular rhythm GI Common normals: Normal to inspection, nondistended, normoactive bowel sounds present Auscultation: normoactive bowel sounds Palpation: soft Rectal Exam - Female: deferred Common normals: no CVA tenderness Back & Pelvis Common normals: no CVA tenderness Extremity Common normals: normal to inspection and full ROM Neuro Common normals: oriented x3 Sensorium/orientation: awake, alert, oriented to person, oriented to place and oriented to time Psych Common normals: mental status grossly normal, thought process normal, cooperative, affect normal, speech normal, activity/motor behavior normal, denies hallucinations, denies homicidal ideation and denies suicidal ideation Attitude: calm Speech: normal speech Thought process: normal thought process Thought content: normal thought content Results Labs Labs: Short CBC 03/17/24 Range/Units 19:38 WBC 10.6 (4.0-11.0) 10^3/uL Hgb 11.4 L (12.0-16.0) g/dL Hct 36.9 (36.0-48.0) % Plt Count 242 (150-450) 10^3/uL OB - A/P Assessment and Plan (1) Term : (2) Oligohydramnios: Qualifiers: Fetus number: single or unspecified fetus
--- NOTE | 2024-03-18 09:58 | PM.EN ---
Event Note Event Note: to unit to assess patient. SVE 2+/60/-1 unable to feel bag of fluid. patient is oligohydramnios of 2 cm. attempted to AROM with sterile amnihook, with a very small return of liquid, mucous and tinge of blood. No active bleeding noted/ heart tones are stable before, during and after ROM attempt. I am not confident she is ruptured. Will have nurse assess for a couple hours and I will return if needed.
[2024-03-18] MEDS: 0.9 % SODIUM CHLORIDE 1,000 ML 1000 ML IV (10:48)
[2024-03-18] MEDS: ROPIVACAINE HCL/PF 400 MG/200 ML PREMIX 10 MG EPIDURAL (11:06)
[2024-03-18] MEDS: ONDANSETRON PF 4 MG/2 ML VIAL IV (16:53)
--- NOTE | 2024-03-18 19:44 | W.PC.ACHO ---
Registration Status: ADM IN Primary Language: Venezuelan Preferred Language: Venezuelan Report given to Mena PAN at 1915. Care relinquished. Active Medications Generic Name Dose Route Start Last Admin Trade Name Rickie PRN Reason Stop Dose Admin Acetaminophen 1,000 mg 03/17/24 19:13 Acetaminophen 500 Mg Tablet PO Q6H PRN pain or fever 100.0 Calcium Carbonate 500 mg 03/17/24 19:13 Calcium Carbonate 500 Mg (200mg Elemental) Tab Chew PO TID PRN Heartburn Carboprost Tromethamine 250 mcg 03/17/24 19:07 Carboprost Tromethamine 250 Mcg/Ml 1 Ml Vial IM 03/19/24 19:07 Q15M PRN Bleeding Diphenhydramine HCl 25 mg 03/18/24 10:33 Diphenhydramine Hcl 50 Mg/Ml Vial IV 03/19/24 10:34 Q6H PRN Itching Ephedrine Sulfate 5 mg 03/18/24 10:33 Ephedrine Sulfate 50 Mg/Ml Vial IV 03/19/24 10:34 Q5M PRN Blood Pressure - Low Fentanyl Citrate 100 mcg 03/18/24 10:33 Fentanyl Citrate/Pf 100 Mcg/2 Ml Vial EPIDURAL ONCE PRN epidural Fentanyl Citrate 100 mcg 03/18/24 10:33 Fentanyl Citrate/Pf 100 Mcg/2 Ml Vial EPIDURAL ONCE PRN epidural Tranexamic Acid 1,000 mg/ 110 mls @ 440 mls/hr 03/17/24 19:07 Sodium Chloride IV 03/19/24 19:07 ONCE PRN Uterine Bleeding Oxytocin/Sodium Chloride 10 units in 500 mls @ 6 mls/hr 03/17/24 19:15 03/18/24 18:35 Pitocin 10 Unit/500 Ml-Ns IV 8 milliunit/min TITR ESTELLA 24 mls/hr Infusion Protocol 2 MILLIUNIT/MIN Oxytocin/Sodium Chloride 20 units in 1,000 mls @ 125 mls/hr 03/17/24 19:07 Pitocin 20 Unit/1,000 Ml-Ns IV Q8H PRN POST DELIVERY Lactated Ringer's 1,000 mls @ 125 mls/hr 03/17/24 19:30 03/18/24 18:26 Lactated Ringers IV 125 mls/hr .Q8H ESTELLA Administration Ropivacaine/Sodium Chloride 400 mg in 200 mls @ 6 mls/hr 03/18/24 10:45 03/18/24 11:06 Naropin 0.2% 400 Mg/200 Ml Bag EPIDURAL 10 mls/hr Q24H ESTELLA Administration Lidocaine 5 ml 03/17/24 19:07 Lidocaine Viscous 2% 15 Ml Solution TOPICAL 03/19/24 19:10 ONCE PRN Pain Lidocaine 1 ml 03/17/24 19:07 Lidocaine Hcl 1% 200 Mg/20 Ml Mdv INJ 03/19/24 19:10 ONCE PRN Pain Lidocaine 5 ml 03/18/24 10:33 Lidocaine Hcl 2% Pf 100 Mg/5 Ml Vial INJ 03/19/24 10:33 Q1H PRN Pain Methylergonovine Maleate 0.2 mg 03/17/24 19:07 Methylergonovine Maleate 0.2 Mg/Ml Ampule IM 03/19/24 19:07 ONCE PRN Uterine Contractility/Contract Methylergonovine Maleate 0.2 mg 03/17/24 19:07 Methylergonovine Maleate 0.2 Mg Tablet PO 03/19/24 19:07 Q4H PRN Uterine Contractility/Contract Misoprostol 600 mcg 03/17/24 19:07 Misoprostol 100 Mcg Tablet PO 03/19/24 19:07 ONCE PRN Uterine Bleeding Misoprostol 800 mcg 03/17/24 19:07 Misoprostol 100 Mcg Tablet SL 03/19/24 19:07 ONCE PRN Uterine Bleeding Misoprostol 1,000 mcg 03/17/24 19:07 Misoprostol 100 Mcg Tablet AL 03/19/24 19:07 ONCE PRN Uterine Bleeding Nalbuphine HCl 10 mg 03/17/24 19:07 Nalbuphine Hcl 10 Mg/Ml Ampule IV Q3H PRN Pain Naloxone HCl 0.4 mg 03/18/24 10:33 Naloxone Hcl 0.4 Mg/Ml Vial IV 03/19/24 10:34 ONCE PRN Respiratory Distress Ondansetron HCl 4 mg 03/17/24 19:07 03/18/24 16:53 Ondansetron Pf 4 Mg/2 Ml Vial IV 4 mg Q6H PRN Administration Nausea And Vomiting Ondansetron HCl 4 mg 03/17/24 19:07 Ondansetron 4 Mg Rapdis Tablet SL Q6H PRN Nausea And Vomiting Oxytocin 10 unit 03/17/24 19:07 Oxytocin 10 Unit/Ml Vial IM 03/19/24 19:07 ONCE PRN Bleeding Zolpidem Tartrate 5 mg 03/17/24 19:13 Zolpidem Tartrate 5 Mg Tablet PO HS PRN Sleep Diet Category Date Time Status Regular Consistency Diet Diet 03/17/24 19:08 Active IV Insertion/Site Date of IV Line Insertion [20g 03/17/24 right Forearm] IV Insertion Time [20g right 19:38 Forearm] Neurology Patient orientation (short person,place,time,situation list) Respiratory Oxygen Delivery Method Room Air Oxygen Delivery Method Room Air Oxygen Delivery Method Room Air Oxygen Delivery Method Room Air Oxygen Delivery Method Room Air Oxygen Delivery Method Room Air Oxygen Delivery Method Room Air
[2024-03-19] VITALS (38 sets, daily range): BP systolic 109–151; BP diastolic 56–92; PULSE 106–169; TEMP 36.4–37.3
[2024-03-19] MEDS: ACETAMINOPHEN 500 MG TABLET 1000 MG PO (01:41)
[2024-03-19] MEDS: OXYTOCIN/0.9 % SODIUM CHLORIDE 10 UNITS/500 ML PLAST..BAG 30 UNIT IV (01:47)
[2024-03-19] MEDS: LACTATED RINGER'S SOLUTION 1,000 ML 125 ML IV (01:50)
[2024-03-19] MEDS: CLINDAMYCIN PHOSPHATE/D5W 900 MG/50 ML PREMIX 100 MG IV (02:21)
[2024-03-19] MEDS: LIDOCAINE VISCOUS 2% 15 ML SOLUTION 5 ML TOPICAL (03:20)
[2024-03-19] MEDS: LIDOCAINE HCL 1% 200 MG/20 ML MDV INJ (03:32)
--- NOTE | 2024-03-19 04:39 | PM.OBPRCVD ---
Procedure Procedure: events: No Care (late care, care began at 30 weeks ) Intrapartal events: None Induction method: per pitocin protocol Delivery augmentation: rupture of membranes Delivery monitor: external FHT Route of delivery: Episiotomy Description: right mediolateral L&D Laceration Description: perineal - 2nd degree Delivery repair: Vicryl Estimated blood loss (mL): 150 Anesthesia type: Epidural Delivery date: 03/19/24 Gender: female presentation: vertex Placental delivery description: Spontaneous (greater than 30 mins and placenta did not come out. Dr Yu called to come for assistance. He was present and accomplished spontaneous delivery of the placenta. No manual removal needed at this time. ) cord description: 3 Vessels and Loose (CAN x1 loose reduced with delivery ) heart rate - 1 minute: Below 100 bpm respiratory effort - 1 minute: No Spontaneous Effort muscle tone - 1 minute: Limp reflex response - 1 minute: No Response color - 1 minute: Pallor or Cyanosis total score - 1 minute: 1 heart rate - 5 minute: 100 bpm or Greater respiratory effort - 5 minute: Spontaneous/Strong Cry muscle tone - 5 minute: Minimal Flexion/Extension reflex response - 5 minute: Minimal Response color - 5 minute: Bluish Hands or Feet total score - 5 minute: 7
[2024-03-19] MEDS: OXYTOCIN/0.9 % SODIUM CHLORIDE 20 UNITS/1,000 ML PLAST..BAG 125 UNIT IV (04:51)
[2024-03-19] MEDS: METHYLERGONOVINE MALEATE 0.2 MG/ML AMPULE IM (04:53)
[2024-03-19] MEDS: BENZOCAINE/MENTHOL 85 GRAM SPRAY BOTTLE 1 APPLIC TOPICAL (05:59)
[2024-03-19] MEDS: IBUPROFEN 400 MG TABLET 800 MG PO ×3 (06:00→22:30)
[2024-03-19] MEDS: ONDANSETRON PF 4 MG/2 ML VIAL IV (06:00)
[2024-03-19] MEDS: GLYCERIN/WITCH HAZEL PADS 1 PAD TOPICAL (06:00)
[2024-03-19 10:21] LABS: Hematocrit 30.1 % (36.0-48.0); Hemoglobin 9.7 g/dL (12.0-16.0); Mean Corpuscular HGB Conc 32.2 g/dL (29.9-35.2); Mean Corpuscular Hemoglobin 27.6 pg (26.7-34.0); Mean Corpuscular Volume 85.5 fL (81.0-99.0); Platelet Count 211 10^3/uL (150-450); Red Blood Count 3.52 10^6/uL (4.20-5.40); Red Cell Distribution Width 22.7 % (11.0-15.0); White Blood Count 25.8 10^3/uL (4.0-11.0)
[2024-03-19 11:10] LABS: Anisocytosis 2+; Band Neutrophils Absolute 0.5 10^3/uL (0.0-0.3); Monocytes Absolute Manual 0.25 10^3/uL (0.30-0.80); Segmented Neut Absolute Manual 23.22 10^3/uL (1.4-6.5)
--- NOTE | 2024-03-19 13:10 | SWNOTE1 ---
IGANCARLO spoke to pt about being a self pay patient. Pt stated she applied for Medicaid a few months ago, but had been told she was denied due to having another insurance? SW asked pt if she had another insurance and she stated no. SW asked what she had in the past for insurance and she stated she thinks [facility]. SW did ask if it was her moms and she stated yes. SW is not sure why she would be denied Medicaid. At this time SW encouraged her to re-apply for Medicaid. Pt in agreement, pt's significant other in room as well. GIANCARLO provided pt with a Medicaid application and let her know to fill it out and SW will check back later today or tomorrow. GIANCARLO advised if any questions to let SW know. GIANCARLO also sent an email to [facility].
--- NOTE | 2024-03-19 13:20 | SWNOTE1 ---
Pt also has been in contact with [facility] and will schedule appointment once they are home.
[2024-03-19] MEDS: FERROUS SULFATE 325 MG TABLET PO (21:20)
[2024-03-20] VITALS: BP 115/68; PULSE 111; TEMP 36.7
--- NOTE | 2024-03-20 07:11 | W.PC.ACHO ---
Registration Status: ADM IN Primary Language: Samoan Preferred Language: Samoan Report given to Debbie PAN. Active Medications Generic Name Dose Route Start Last Admin Trade Name Faustinoq PRN Reason Stop Dose Admin Acetaminophen 1,000 mg 03/17/24 19:13 03/19/24 01:41 Acetaminophen 500 Mg Tablet PO 1,000 mg Q6H PRN Administration pain or fever 100.0 Acetaminophen 650 mg 03/19/24 05:29 Acetaminophen 325 Mg Tablet PO Q6H PRN Mild Pain Al Hydroxide/Mg Hydroxide 2,400 mg 03/19/24 05:29 Magnesium Hydroxide 2,400 Mg/10 Ml Oral.Susp PO Q6H PRN Dyspepsia Benzocaine/Menthol 1 applic 03/19/24 05:29 03/19/24 05:59 Benzocaine/Menthol 85 Gram [place] Bottle TOPICAL 1 applic Q2H PRN Administration Pain Calcium Carbonate 500 mg 03/17/24 19:13 Calcium Carbonate 500 Mg (200mg Elemental) Tab Chew PO TID PRN Heartburn Diphtheria/Pertussis/Tetanus Vacc 0.5 ml 03/21/24 09:00 Adacel Diph,Pertuss(Acell),Tet Vac/Pf 0.5 Ml Adult Syringe IM 03/21/24 09:01 .ONCE ONE Docusate Sodium 100 mg 03/20/24 09:00 Docusate Sodium 100 Mg Capsule PO BID ESTELLA Fentanyl Citrate 100 mcg 03/18/24 10:33 Fentanyl Citrate/Pf 100 Mcg/2 Ml Vial EPIDURAL ONCE PRN epidural Fentanyl Citrate 100 mcg 03/18/24 10:33 Fentanyl Citrate/Pf 100 Mcg/2 Ml Vial EPIDURAL ONCE PRN epidural Ferrous Sulfate 325 mg 03/19/24 09:00 03/19/24 21:20 Ferrous Sulfate 325 Mg Tablet PO 325 mg BID ESTELLA Administration Oxytocin/Sodium Chloride 10 units in 500 mls @ 6 mls/hr 03/17/24 19:15 03/19/24 01:47 Pitocin 10 Unit/500 Ml-Ns IV 10 milliunit/min TITR ESTELLA 30 mls/hr Administration Protocol 2 MILLIUNIT/MIN Lactated Ringer's 1,000 mls @ 125 mls/hr 03/17/24 19:30 03/19/24 01:50 Lactated Ringers IV 125 mls/hr .Q8H ESTELLA Administration Ropivacaine/Sodium Chloride 400 mg in 200 mls @ 6 mls/hr 03/18/24 10:45 03/19/24 04:30 Naropin 0.2% 400 Mg/200 Ml Bag EPIDURAL Infused Q24H ESTELLA Infusion Ibuprofen 800 mg 03/19/24 05:30 03/19/24 22:30 Ibuprofen 400 Mg Tablet PO 800 mg Q8H ESTELLA Administration Measles/Mumps/Rubella Vaccine Live 0.5 ml 03/21/24 09:00 Measles,Mumps,Rubella Vacc/Pf 0.5 Ml Vial SQ 03/21/24 09:01 .ONCE ONE Nalbuphine HCl 10 mg 03/17/24 19:07 Nalbuphine Hcl 10 Mg/Ml Ampule IV Q3H PRN Pain Ondansetron HCl 4 mg 03/17/24 19:07 03/19/24 06:00 Ondansetron Pf 4 Mg/2 Ml Vial IV 4 mg Q6H PRN Administration Nausea And Vomiting Ondansetron HCl 4 mg 03/17/24 19:07 Ondansetron 4 Mg Rapdis Tablet SL Q6H PRN Nausea And Vomiting Senna 17.2 mg 03/19/24 20:00 Sennosides 8.6 Mg Tablet PO QHS PRN Constipation Simethicone 80 mg 03/19/24 05:29 Simethicone 80 Mg Tab.Chew PO QID PRN Abdominal Distention Temazepam 15 mg 03/19/24 05:29 Temazepam 15 Mg Capsule PO QHS PRN Sleep Witch Kiley/Glycerin 1 pad 03/19/24 05:29 03/19/24 06:00 Glycerin/Witch Kiley Pads TOPICAL 1 pad Q2H PRN Administration Pain Zolpidem Tartrate 5 mg 03/17/24 19:13 Zolpidem Tartrate 5 Mg Tablet PO HS PRN Sleep Respiratory Oxygen Delivery Method Room Air Oxygen Delivery Method Room Air Oxygen Delivery Method Room Air Renal Bladder Pattern Continent Bladder Pattern Continent
[2024-03-20 08:05] VITALS: BP 120/69; PULSE 96; TEMP 36.8
[2024-03-20 08:08] VITALS: BP 120/69; PULSE 96
[2024-03-20] MEDS: IBUPROFEN 400 MG TABLET 800 MG PO ×2 (08:11→16:23)
[2024-03-20] MEDS: DOCUSATE SODIUM 100 MG CAPSULE PO ×2 (08:11→21:33)
[2024-03-20] MEDS: FERROUS SULFATE 325 MG TABLET PO (08:11)
--- NOTE | 2024-03-20 08:41 | PM.OBPN ---
OB - PN: Subj Subjective Patient comments: no complaints and pain well controlled [place] status: doing well Exam Constitutional Vital Signs, click to edit/add: Last Vital Signs Temp 98.2 F 03/20/24 08:05 Pulse 96 H 03/20/24 08:08 Resp 16 03/20/24 08:05 BP 120/69 03/20/24 08:08 O2 Del Method Room Air 03/20/24 00:00 Documenting provider has reviewed patient's vital signs: yes Common normals: no apparent distress Respiratory Common normals: normal respiratory effort and clear to auscultation bilaterally Cardio Common normals: regular rate and regular rhythm GI Common normals: Normal to inspection, nondistended, normoactive bowel sounds present Extremity Common normals: no calf tenderness Results Labs Labs: Short CBC 03/19/24 Range/Units 10:03 WBC 25.8 H (4.0-11.0) 10^3/uL Hgb 9.7 L (12.0-16.0) g/dL Hct 30.1 L (36.0-48.0) % Plt Count 211 (150-450) 10^3/uL OB - PN: A/P Assessment and Plan (1) Term : (2) Oligohydramnios: Qualifiers: Fetus number: single or unspecified fetus Plan - Vaginal Delivery day: 1 Plan: routine care Time Spent with Patient Time: Total time spent is greater than 50% in coordination of care (as documented) at patient's floor/unit and/or counseling patient: Total time spent with greater than 50% in coordination of care (as documented) at patient's floor/unit and/or counseling patient: less than 15 minutes
[2024-03-20 10:35] VITALS: BP 123/60; PULSE 102
[2024-03-20 16:15] VITALS: BP 106/65; PULSE 102; TEMP 37.7
[2024-03-20 16:16] VITALS: BP 106/65; PULSE 102
--- NOTE | 2024-03-20 19:32 | W.PC.ACHO ---
Registration Status: ADM IN Primary Language: Moldovan Preferred Language: Moldovan Report given on discharge teaching, meds & delivery history. Active Medications Generic Name Dose Route Start Last Admin Trade Name Rickie PRN Reason Stop Dose Admin Acetaminophen 1,000 mg 03/17/24 19:13 03/19/24 01:41 Acetaminophen 500 Mg Tablet PO 1,000 mg Q6H PRN Administration pain or fever 100.0 Acetaminophen 650 mg 03/19/24 05:29 Acetaminophen 325 Mg Tablet PO Q6H PRN Mild Pain Al Hydroxide/Mg Hydroxide 2,400 mg 03/19/24 05:29 Magnesium Hydroxide 2,400 Mg/10 Ml Oral.Susp PO Q6H PRN Dyspepsia Benzocaine/Menthol 1 applic 03/19/24 05:29 03/19/24 05:59 Benzocaine/Menthol 85 Gram [place] Bottle TOPICAL 1 applic Q2H PRN Administration Pain Calcium Carbonate 500 mg 03/17/24 19:13 Calcium Carbonate 500 Mg (200mg Elemental) Tab Chew PO TID PRN Heartburn Diphtheria/Pertussis/Tetanus Vacc 0.5 ml 03/21/24 09:00 Adacel Diph,Pertuss(Acell),Tet Vac/Pf 0.5 Ml Adult Syringe IM 03/21/24 09:01 .ONCE ONE Docusate Sodium 100 mg 03/20/24 09:00 03/20/24 08:11 Docusate Sodium 100 Mg Capsule PO 100 mg BID ESTELLA Administration Fentanyl Citrate 100 mcg 03/18/24 10:33 Fentanyl Citrate/Pf 100 Mcg/2 Ml Vial EPIDURAL ONCE PRN epidural Fentanyl Citrate 100 mcg 03/18/24 10:33 Fentanyl Citrate/Pf 100 Mcg/2 Ml Vial EPIDURAL ONCE PRN epidural Ferrous Sulfate 325 mg 03/19/24 09:00 03/20/24 08:11 Ferrous Sulfate 325 Mg Tablet PO 325 mg BID ESTELLA Administration Oxytocin/Sodium Chloride 10 units in 500 mls @ 6 mls/hr 03/17/24 19:15 03/19/24 01:47 Pitocin 10 Unit/500 Ml-Ns IV 10 milliunit/min TITR ESTELLA 30 mls/hr Administration Protocol 2 MILLIUNIT/MIN Lactated Ringer's 1,000 mls @ 125 mls/hr 03/17/24 19:30 03/19/24 01:50 Lactated Ringers IV 125 mls/hr .Q8H ESTELLA Administration Ropivacaine/Sodium Chloride 400 mg in 200 mls @ 6 mls/hr 03/18/24 10:45 03/19/24 04:30 Naropin 0.2% 400 Mg/200 Ml Bag EPIDURAL Infused Q24H ESTELLA Infusion Ibuprofen 800 mg 03/19/24 05:30 03/20/24 16:23 Ibuprofen 400 Mg Tablet PO 800 mg Q8H ESTELLA Administration Measles/Mumps/Rubella Vaccine Live 0.5 ml 03/21/24 09:00 Measles,Mumps,Rubella Vacc/Pf 0.5 Ml Vial SQ 03/21/24 09:01 .ONCE ONE Nalbuphine HCl 10 mg 03/17/24 19:07 Nalbuphine Hcl 10 Mg/Ml Ampule IV Q3H PRN Pain Ondansetron HCl 4 mg 03/17/24 19:07 03/19/24 06:00 Ondansetron Pf 4 Mg/2 Ml Vial IV 4 mg Q6H PRN Administration Nausea And Vomiting Ondansetron HCl 4 mg 03/17/24 19:07 Ondansetron 4 Mg Rapdis Tablet SL Q6H PRN Nausea And Vomiting Senna 17.2 mg 03/19/24 20:00 Sennosides 8.6 Mg Tablet PO QHS PRN Constipation Simethicone 80 mg 03/19/24 05:29 Simethicone 80 Mg Tab.Chew PO QID PRN Abdominal Distention Temazepam 15 mg 03/19/24 05:29 Temazepam 15 Mg Capsule PO QHS PRN Sleep Witch [place]/Glycerin 1 pad 03/19/24 05:29 03/19/24 06:00 Glycerin/[place]itch [place] Pads TOPICAL 1 pad Q2H PRN Administration Pain Zolpidem Tartrate 5 mg 03/17/24 19:13 Zolpidem Tartrate 5 Mg Tablet PO HS PRN Sleep Respiratory Oxygen Delivery Method Room Air Oxygen Delivery Method Room Air Oxygen Delivery Method Room Air Renal Bladder Pattern Continent Bladder Pattern Continent
[2024-03-21 00:19] VITALS: BP 124/67; PULSE 107; TEMP 35.8
[2024-03-21] MEDS: IBUPROFEN 400 MG TABLET 800 MG PO ×2 (00:20→07:54)
[2024-03-21] MEDS: FERROUS SULFATE 325 MG TABLET PO ×2 (01:18→07:55)
[2024-03-21 07:46] VITALS: BP 123/61; PULSE 114
[2024-03-21 07:47] VITALS: TEMP 36.1
[2024-03-21] MEDS: DOCUSATE SODIUM 100 MG CAPSULE PO (07:55)
--- NOTE | 2024-03-21 11:56 | PM.OBDS ---
DS: Providers Provider Date of admission: 03/17/24 18:45 Primary care physician: Non-Staff Physician, Consults: 03/17/24 Consult to Anesthesiology Routine Consulting Provider: Orin Huggins Reason for consultation: epidural Attending physician on discharge: Tyra Lopez Anticipated date of discharge: 03/21/24 DS: Diagnosis Discharge Diagnosis (1) Normal vaginal delivery: Assessment and plan: condition good, instructions given, no script discharge home, exam in six weeks Plan as above OB - DS: Summary Hospital Course Hospital Course: uncomplicated Time spent discussing smoking cessation with patient: 3 to 10 minutes Peripartum Data - Vaginal Delivery Laceration description: perineal - 2nd degree Episiotomy Description: right mediolateral Complications complications: none Delivery method: spontaneous vaginal delivery Gender: female Discharge plan: home Status at Discharge Cognitive/behavioral status at discharge: wnl Functional status at discharge: independent ambulation Time Spent with Patient Time attestation: Total time spent providing and/or coordinating discharge services: Time spent: less than 30 minutes Exam Narrative Exam Narrative: voicing no complaints Constitutional Vital Signs, click to edit/add: Last Vital Signs Temp 97.0 F L 03/21/24 07:47 Pulse 114 H 03/21/24 07:46 Resp 16 03/21/24 00:19 BP 123/61 03/21/24 07:46 O2 Del Method Room Air 03/21/24 00:19 Documenting provider has reviewed patient's vital signs: yes Common normals: no apparent distress, oriented x3, no limitations and healthy appearing HENMT Common normals: normocephalic and head/scalp atraumatic Eye Common normals: PERRL Pupil: accommodation reflex normal Neck & C-Spine Common normals: full ROM Respiratory Common normals: normal respiratory effort Auscultation: clear to auscultation bilaterally Cardio Common normals: regular rate and regular rhythm GI Common normals: Normal to inspection, nondistended, normoactive bowel sounds present and soft to palpation Common normals: no CVA tenderness Back & Pelvis Common normals: no thoracic nor lumbar tenderness Extremity Common normals: normal to inspection, full ROM and no calf tenderness Neuro Common normals: CN's II-XII intact bilaterally Sensorium/orientation: awake, alert, oriented to person, oriented to place and oriented to time Psych Common normals: mental status grossly normal, thought process normal, cooperative, affect normal and speech normal Discharge Plan Discharge Disposition: Home, Self-Care Condition: Good Health Concerns: none Discharge Medications: Continued ferrous sulfate [Feosol] 325 mg (65 mg iron) tablet 325 mg PO BID Activity: resume usual activities as tolerated Activity Detail: no sex six weeks, may climb stairs, walking only exercise six weeks, may shower no bathtub 4 weeks, only lift baby 4 weeks, limit time in car for 4 weeks, call for problem or concern Diet: regular diet Print Language: Armenian Patient Instructions: Vaginal Delivery (DC) Activity Restrictions/Additional Instructions: as above Forms: Portal Instructions Follow Up Appointments: make an appointment for exam Discharge location: home
[2024-03-21] MEDS: BENZOCAINE/MENTHOL 85 GRAM SPRAY BOTTLE 1 APPLIC TOPICAL (12:54)
== END 2024-03-21 13:45 | disposition home or self-care (01) | DRG 806 ==
PROVIDERS: Admitting Provider Midwife; Visit Provider Midwife
DX: O41.03X0 Oligohydramnios, third trimester, not applicable or unspecified (principal); F84.0 Autistic disorder; Z37.0 Single live birth; Z3A.39 39 weeks gestation of pregnancy; O70.1 Second degree perineal laceration during delivery; O26.893 Other specified pregnancy related conditions, third trimester; Z67.41 Type O blood, Rh negative; Z87.898 Personal history of other specified conditions; O69.81X0 Labor and delivery complicated by cord around neck, without compression, not applicable or unspecified; O99.344 Other mental disorders complicating childbirth; F41.9 Anxiety disorder, unspecified
CPT/HCPCS: 36415; 59050; 59410; 80307; 85007; 85025; 85027; 86850; 86900; 86901; 88307; J0736; J2210; J2405; J2795